=== PATIENT | female | born 1985 | race Caucasian/White ===

== ENCOUNTER 2019-04-24 17:02 | Outpatient (CLI) | payer BC, SELFPAY ==
--- NOTE | ~2019-04-24 | XR_ITS ---
EXAMINATION: XR ankle LT min 3V DATE: 04/24/2019 17:34 INDICATION: Left ankle pain with weightbearing and flexing TECHNIQUE: Anteroposterior, oblique, mortise, and lateral views of the left ankle were obtained. COMPARISON: None. FINDINGS: Bone alignment is normal. There is a small rounded ossicle at the lateral side of the tibiotalar join t. There appears to be a shallow concavity with smooth corticated margins along the lateral rim of th e talar dome. Appearance suggests a possibility of chronic displaced chip fracture or small osteochon dral lesion. No acute fractures identified. Joint spaces appear relatively preserved. Soft tissues ar e unremarkable with no evident ankle joint effusion. IMPRESSION: 1. Tiny round intra-articular loose body at the lateral side of the ankle mortise and adjacent subtle chronic appearing contour abnormality along the lateral margin of the talar dome suggesting either a n old displaced tiny chip fracture fragment or osteochondral lesion as sequela of old trauma. Reviewed, dictated and finalized at location A. ATOR CAVITY PUMP IMPRESSION: 1. Tiny round intra-articular loose body at the lateral side of the ankle morti se and adjacent subtle chronic appearing contour abnormality along the lateral margin of the talar dome suggesting either an old displaced tiny chip fracture fragment or osteochondral lesion as sequela of old trauma.
== END 2019-04-24 17:03 | disposition home or self-care (01) ==
LOC: ANHIMG 17:08
PROVIDERS: PCP Family Medicine; Visit Provider Physician Assistant
DX: S99.912A Unspecified injury of left ankle, initial encounter (principal)
CPT/HCPCS: 73610

== ENCOUNTER 2019-10-08 15:36 | Emergency (ER) | payer BC, SELFPAY ==
--- NOTE | ~2019-10-08 | CT_ITS ---
EXAMINATION: CT abdomen pelvis w con DATE: 10/08/2019 18:22 INDICATION: Left lower quadrant abdominal pain. TECHNIQUE: Computed tomography (CT) of the abdomen and pelvis was performed with 100 mL Omnipaque 350 intravenous contrast. Automated exposure control and iterative reconstruction technique were employe d. The dose-length product was 1549.72 mGy-cm. COMPARISON: CT abdomen and pelvis 09/29/2018 FINDINGS: The visualized portions of the lung bases demonstrate mild atelectasis on the left. No pleu ral effusion. The heart size is normal. No pericardial effusion. The liver, gallbladder, spleen, panc reas, and left adrenal gland are normal. There is a 9 mm mass of fat in right adrenal gland, consiste nt with a myelolipoma. There is cortical thinning of the kidneys. There are no dilated loops of bowel . The appendix is normal. There are no pathologically enlarged lymph nodes. There is no free intraper itoneal fluid. There is mild thoracic spondylosis. IMPRESSION: 1. No etiology for the patient's symptoms. Reviewed, dictated and finalized at location A.
[2019-10-08 15:40] VITALS: BP 141/102; PULSE 115; RESP 20; TEMP 37.3; O2SAT 97
--- NOTE | 2019-10-08 16:23 | ED.ABDPAIN ---
HPI - Abdominal Pain General Chief Complaint: Abdominal Pain Stated Complaint: L LOWER ABD PAIN Time Seen by Provider: 10/08/19 15:45 Source: patient Mode of arrival: ambulatory Limitations: no limitations History of Present Illness HPI narrative: This patient is a 34 year old female who presents for evaluation of left lower abdominal pain. Patient states she developed left lower abdominal pain today. She noticed the area was tender so she called her owner consulting engineer. She states her owner consulting engineer recommended she come to ER. She denies urinary symptoms, pelvic discharge, vomiting, or fever. She has history of kidney stone but this pain is different. She has not taken anything for her pain. MD elicited complaint: abdominal pain Radiation: LLQ Related Data Home Medications Medication Instructions Recorded Confirmed etonogestrel 68 mg subdermal 1 implant SUBDERMAL ONCE 03/16/19 10/05/19 implant Allergies Allergy/AdvReac Type Severity Reaction Status Date / Time No Known Allergies Allergy Verified 10/08/19 15:49 Review of Systems Review of Systems: All systems reviewed & are unremarkable except as noted in HPI and below Constitutional: Constitutional: Denies chills and Denies fever(s) Gastrointestinal: Gastrointestinal: Reports abdominal pain, Denies diarrhea, Reports nausea and Denies vomiting Genitourinary: Genitourinary: Denies abnormal vaginal bleeding, Denies nocturia, Denies dysuria, Denies flank pain and Denies vaginal discharge Musculoskeletal: Musculoskeletal: Denies back pain PMFSH Past Medical History Medical History (Updated 10/08/19 @ 18:51 by Tali Franz MD) HLD (hyperlipidemia) Kidney stone Surgical History Surgical History (Updated 10/08/19 @ 16:24 by Tali Franz MD) H/O lithotripsy Family History Family History (Updated 06/30/17 @ 07:34 by DOCTOR UNKNOWN) Father Family history of chronic obstructive pulmonary disease Malignant neoplasm of prostate Family history of diabetes mellitus in first degree relative Family history of congestive heart failure Diabetes mellitus Hypertension Family history of cardiovascular disease Mother Family history of diabetes mellitus in first degree relative Diabetes mellitus Social History Social History Smoking status: Never smoker Second hand tobacco smoke exposure: No Alcohol intake: current Gender identity (if verbalized by the patient): Female Exam Narrative: Exam Narrative: GENERAL: Well-appearing, well-nourished, and in no acute distress. HEAD: Normocephalic, atraumatic EYES: PERRLA and EOMI, conjunctiva clear without discharge THROAT:Mucous membranes moist,e NECK: Supple, without lymphadenopathy or mass RESPIRATORY: No respiratory distress, Airway patent, Respirations non-labored, Clear to auscultation without rales, rhonchi or wheeze HEART: Regular rate and rhythm. No murmur heard. Normal peripheral pulses. ABDOMEN: Soft,focal LLQ tenderness, nondistended, normal active bowel sounds. No masses. No rebound or guarding, No organomegaly. EXTREMITIES: No edema, normal strength with full range of motion. SKIN: Warm, dry, normal color without rash NEURO: Alert and oriented x3. CN 2-12 grossly intact. No focal deficits. PSYCH: Normal mood and affect. : General: Yes no CVA tenderness Speculum Exam - Vagina: abnormal vaginal discharge (brown discharge with small clot) Bimanual exam- vagina & uterus: no cervical motion tenderness Course Reevaluation(s) Reevaluation #1: I have discussed with patient that CT did not show any cause for her pain. Pelvic exam showed mild brown discharge likely from menstrual cycle. She has not CMT. She will follow up with OBGYN regarding test and pain. Date: 10/08/19 Time: 18:48 Vital Signs Vital signs: Vital Signs Temperature 99.1 F 10/08/19 15:40 Pulse Rate 115 H 10/08/19 15:40 Respiratory Rate 2
[2019-10-08 16:55] LABS: Basophils Absolute Auto 0.1 K/mm3 (0.0-0.1); Basophils Percent Auto 0.4 % (0.2-1.2); Eosinophils Absolute Auto 0.3 K/mm3 (0-0.3); Hemoglobin 13.7 g/dL (12.0-15.0); Immature Granulocyte Absolute 0.03 K/mm3 (0.00-0.031); Immature Granulocyte Percent A 0.3 % (0-0.5); Lymphocytes Percent Auto 18.3 % (18.3-44.2); Mean Corpuscular HGB Conc 34.3 g/dl (32-36); Mean Corpuscular Hemoglobin 31.1 pg (26-34); Mean Corpuscular Volume 90.9 fl (80-100); Mean Platelet Volume 10.2 fl (7.4-10.4); Monocytes Absolute Auto 0.6 K/mm3 (0.1-0.6); Monocytes Percent Auto 4.8 % (2.6-8.5); Neutrophils Absolute Auto 8.4 K/mm3 (1.3-6.7); Neutrophils Percent Auto 73.2 % (45.5-73.1); Platelet Count Result 294 k/mm3 (150-375); Red Cell Distribution Width 12.8 % (11.5-14.5); White Blood Count 11.5 K/mm3 (4.5-10.0)
[2019-10-08] MEDS: KETOROLAC 30 MG/ML VIAL (*BKC) IV PUSH (16:56)
[2019-10-08] MEDS: LACTATED RINGERS 1,000 ML 999 ML IV CONT (16:56)
[2019-10-08 16:59] LABS: Add Urine Microscopic? YES; Appearance Urine Clear (Clear); Bilirubin Urine Negative (Negative); Blood Urine Negative (Negative); Color Urine Straw (Yellow); Glucose Urine UA Negative (Negative); Ketones Urine Negative (Negative); Leukocyte Esterase Ur 1+ LEU/UL (Negative); Mucus Urine Rare /lpf; Nitrate Urine Negative (Negative); Protein Urine Negative (Negative); RBC Urine 0-2 /hpf (0-2); Specific Grav Ur 1.011 (1.001-1.035); Squamous Epithelial Cell Urine Few /hpf (Few); Urobilinogen Urine Negative mg/dL (<2.0)
[2019-10-08 17:21] LABS: Alanine Aminotransferase 13 U/L (4-35); Alkaline Phosphatase 66 U/L (38-126); Aspartate Amino Transferase 17 U/L (14-36); Bilirubin,Total 0.2 mg/dL (0.2-1.3); Blood Urea Nitrogen 12 mg/dL (7-17); Calcium 8.9 mg/dL (8.4-10.2); Carbon Dioxide 25 mmol/L (22-30); Chloride 107 mmol/L (98-107); Estimated CRCL calculation 167 ml/min; Estimated Glomerular Filt Rate > 60; Glucose 126 mg/dL (65-105); Lipase 105 U/L (23-300); Potassium 3.8 mmol/L (3.4-5.0); Sodium 139 mmol/L (137-145)
[2019-10-08 17:55] VITALS: BP 118/65; PULSE 65; RESP 15; TEMP 36.9; O2SAT 100
== END 2019-10-08 19:12 | disposition home or self-care (01) ==
PROVIDERS: Emergency Provider General Practice; PCP Family Medicine
DX: R10.32 Left lower quadrant pain (principal); E78.5 Hyperlipidemia, unspecified; Z87.442 Personal history of urinary calculi
CPT/HCPCS: 36415; 74177; 80053; 81001; 81025; 83690; 85025; 87070; 87077; 87491; 87591; 87808; 96361; 96365; 96375; 99284; J0131; J1885; J7120; Q9967

== ENCOUNTER 2021-02-03 16:06 | Outpatient (CLI) | payer BC, SELFPAY ==
--- NOTE | ~2021-02-03 | CT_ITS ---
EXAMINATION: CT abdomen pelvis wo con DATE: 02/03/2021 17:15 INDICATION: Right flank pain. TECHNIQUE: Computed tomography (CT) of the abdomen and pelvis was performed without intravenous contr ast. Automated exposure control and iterative reconstruction technique were employed. The dose-length product was 1493.32 mGy-cm. COMPARISON: CT abdomen and pelvis 10/08/2019 FINDINGS: The visualized portions of the lung bases demonstrate mild atelectasis. No pleural effusion . The heart size is normal. No pericardial effusion. The liver, gallbladder, spleen, pancreas, and le ft adrenal gland are normal. There is a 10 mm mass of fat in right adrenal gland, consistent with a m yelolipoma. There is cortical thinning of right kidney. Left kidney is normal. There is no urolithias is. There are no dilated loops of bowel. The appendix is normal. There are no pathologically enlarged lymph nodes. There is no free intraperitoneal fluid. There is mild thoracolumbar spondylosis. IMPRESSION: 1. No etiology for the patient's symptoms. Reviewed, dictated and finalized at location A. PROGRAMMER ANALYST
--- NOTE | ~2021-02-03 | XR_ITS ---
EXAMINATION: XR abdomen/kub 1V DATE: 02/03/2021 16:43 INDICATION: Right flank pain. TECHNIQUE: A supine view of the abdomen on 2 radiographs was obtained. COMPARISON: CT abdomen and pelvis 10/08/2019 FINDINGS: There are no dilated loops of bowel. There is no visible urolithiasis. IMPRESSION: 1. No urolithiasis. Reviewed, dictated and finalized at location A. TATION OPERATOR HELPER GENERATION IMPRESSION: 1. No urolithiasis.
== END 2021-02-03 16:07 | disposition home or self-care (01) ==
PROVIDERS: PCP Family Medicine; Visit Provider Nurse Practitioner Adult Health
DX: R10.9 Unspecified abdominal pain (principal)
CPT/HCPCS: 74018; 74176

== ENCOUNTER 2021-05-15 13:41 | Outpatient (CLI) | payer BC, SELFPAY ==
--- NOTE | ~2021-05-15 | MM_ITS ---
EXAMINATION: MM diagnostic josé RT w sunil HISTORY: Mastodynia TECHNIQUE: ML, MLO and CC 3-D tomosynthesis images of the right breast were performed and synthetic 2 -D images were generated. CAD analysis was submitted and interpreted. COMPARISON: None BREAST PARENCHYMAL COMPOSITION: The breasts are almost entirely fatty. FINDINGS: No suspicious mass or architectural distortion, malignant calcification, skin thickening or retraction is detected. IMPRESSION: 1. No mammographic evidence of malignancy 2. Routine mammographic screening beginning at age 40 is recommended. BI-RADS Category 1: Negative Reviewed, dictated and finalized at location A. REMENT PLAN SPECIALIST
== END 2021-05-15 13:42 | disposition home or self-care (01) ==
LOC: ANHIMG 13:43
PROVIDERS: PCP Family Medicine; Visit Provider Obstetrics & Gynecology
DX: N64.4 Mastodynia (principal)
CPT/HCPCS: 77061; 77065; G0279

== ENCOUNTER 2021-10-11 08:06 | Emergency (ER) | payer BC, SELFPAY ==
--- NOTE | 2021-10-11 08:08 | ED.URI ---
HPI - URI/Sore Throat General Chief Complaint: Upper Respiratory Infection Stated Complaint: Sore Throat,Headache Time Seen by Provider: 10/11/21 08:07 Source: patient Mode of arrival: ambulatory Limitations: no limitations History of Present Illness HPI Narrative: Mrs. Chinchilla is a 36 year old female patient presenting to the clinic today with c/o sore throat, chills, and headache x1. She reports her symptoms began last night. Temp was 99.4F this morning and she took some tylenol. Took an at home covid test and was unsure of the result. MD elicited complaint: sore throat and nasal congestion Related Data Allergies Allergy/AdvReac Type Severity Reaction Status Date / Time No Known Allergies Allergy Verified 10/06/21 13:08 Review of Systems Review of Systems: Pertinent positives per HPI. Patient denies any fever, chills, rash, headache, visual changes, dizziness, cough, runny nose, sore throat, shortness of breath, chest pain, palpitations, nausea, vomiting, diarrhea, constipation, abdominal pain, or any urinary issues. [facility] Past Medical History Medical History Abnormal Pap smear of cervix 04/10/2019 ASCUS +HPV; 07/09/2020 +hpv Anxiety HLD (hyperlipidemia) HPV in female Kidney stone (~2010) Nexplanon insertion 04/11/18 Nexplanon insertion Surgical History Surgical History H/O lithotripsy 2010 x4 History of bilateral salpingectomy 03/28/20 Hscope D&C/ Jayshree Endometrial ablation / Lscope Bilateral Salpingectomy; Menometrorrhagia , Dysmenorrhea , Undesired fertility History of colposcopy with cervical biopsy 05/05/17 benign History of dilation and curettage 03/28/20 Hscope D&C/ Jayshree Endometrial ablation / Lscope Bilateral Salpingectomy; Menometrorrhagia , Dysmenorrhea , Undesired fertility History of endometrial ablation 03/28/20 Hscope D&C/ Jayshree Endometrial ablation / Lscope Bilateral Salpingectomy; Menometrorrhagia , Dysmenorrhea , Undesired fertility Family History Family History Father Family history of chronic obstructive pulmonary disease Malignant neoplasm of prostate Family history of diabetes mellitus in first degree relative Family history of congestive heart failure Diabetes mellitus Hypertension Family history of cardiovascular disease Heart disease Cerebrovascular accident Mother Family history of diabetes mellitus in first degree relative Diabetes mellitus Hypertension Heart disease Social History Social History Smoking status: Never smoker Second hand tobacco smoke exposure: No Alcohol intake: current Drinks per week: 1 Substance use: never Substance use type: does not use Additional living arrangements comments: Additional occupation/education comments: teacher Gender identity (if verbalized by the patient): Female Sexual Orientation (if Verbalized by the Patient): Straight or Heterosexual Comments At the time of my signature, I reviewed and agree with the nursing past medical, surgical, social, and family history. There is no relevant family history pertinent to the patient complaint. Exam Narrative: General: Well-developed, obese, in no apparent distress Head: Normocephalic, atraumatic Eyes: Pupils equally round and reactive to light bilaterally, EOM intact, sclera and conjunctive clear, no discharge, lids normal Ears: TMs intact and clear, ear canals clear, no drainage, grossly hearing normal. Nose: Nares patent,clear nasal discharge, no inflammation, no sinus tenderness. Mouth: Oropharynx without lesions or masses, good dentition, MMM.Oropharynx red Neck: Supple, trachea midline, no enlargement of anterior or posterior cervical nodes, no thyroid masses or goiter palpable. Ca
[2021-10-11 08:16] VITALS: BP 122/69; PULSE 82; RESP 18; TEMP 36.3; O2SAT 99
== END 2021-10-11 08:50 | disposition home or self-care (01) ==
PROVIDERS: Emergency Provider Nurse Practitioner Family; PCP Family Medicine
DX: J02.9 Acute pharyngitis, unspecified (principal); B34.9 Viral infection, unspecified; Z20.822 Contact with and (suspected) exposure to COVID-19; E78.5 Hyperlipidemia, unspecified
CPT/HCPCS: 87081; 87426; 87880; 99213; C9803; G0463

== ENCOUNTER 2021-11-21 14:01 | Emergency (ER) | payer BC, SELFPAY ==
--- NOTE | ~2021-11-21 | XR_ITS ---
EXAMINATION: XR foot LT min 3V DATE: 11/21/2021 14:22 INDICATION: Pain at the dorsum of the left foot TECHNIQUE: Dorsoplantar, two oblique and lateral views of the left foot were obtained. COMPARISON: None. FINDINGS: Alignment is normal. No fracture. Joint spaces are normal. Soft tissues are unremarkable. No ankle mo int effusion. IMPRESSION: 1. Negative left foot radiographs. Reviewed, dictated and finalized at location A.
[2021-11-21 14:11] VITALS: BP 115/78; PULSE 78; RESP 18; TEMP 37.1; O2SAT 100
--- NOTE | 2021-11-21 14:21 | ED.LOWEXIN ---
HPI - Extremity Injury (Lower) General Chief Complaint: Extremity Injury, Lower Stated Complaint: left foot pain Time Seen by Provider: 11/21/21 14:21 Source: patient and RN notes reviewed Mode of arrival: ambulatory Limitations: no limitations History of Present Illness HPI Narrative: 36-year-old female presents to the [facility] with complaints of left dorsal foot pain. Patient states she is rolled her ankle 2 to 3 weeks ago and the ankle is better but still having discomfort to the dorsal aspect of the foot. No swelling or bruising noted. MD complaint: ankle injury and foot injury Related Data Allergies Allergy/AdvReac Type Severity Reaction Status Date / Time No Known Allergies Allergy Verified 10/06/21 13:08 Review of Systems Review of Systems: All systems reviewed & are unremarkable except as noted in HPI and below Constitutional: Constitutional: Reports no additional constitutional complaints, Denies chills and Denies fever(s) Eyes: Eyes: Reports no additional eye complaints ENT: Reports system reviewed and no additional complaints, except as documented Cardiovascular: Cardiovascular: Reports no additional cardiovascular complaints Respiratory: Respiratory: Reports no additional respiratory complaints Gastrointestinal: Gastrointestinal: Reports no additional gastrointestinal complaints Musculoskeletal: Musculoskeletal: Reports as per HPI and Reports arthralgias (Dorsal left foot) Integumentary/Breasts: Skin/Breast: Reports system reviewed and no additional complaints, except as docu Neurologic: Reports system reviewed and no additional complaints, except as documented Psychiatric: Psychiatric: Reports no additional psychiatric complaints Allergic/Immunologic: Allergic/Immunologic: Reports no additional allergic/immunologic complaints PMFSH Past Medical History Medical History Abnormal Pap smear of cervix 04/10/2019 ASCUS +HPV; 07/09/2020 +hpv Anxiety HLD (hyperlipidemia) HPV in female Kidney stone (~2010) Nexplanon insertion 04/11/18 Nexplanon insertion Surgical History Surgical History H/O lithotripsy 2010 x4 History of bilateral salpingectomy 03/28/20 Hscope D&C/ Jayshree Endometrial ablation / Lscope Bilateral Salpingectomy; Menometrorrhagia , Dysmenorrhea , Undesired fertility History of colposcopy with cervical biopsy 05/05/17 benign History of dilation and curettage 03/28/20 Hscope D&C/ Jayshree Endometrial ablation / Lscope Bilateral Salpingectomy; Menometrorrhagia , Dysmenorrhea , Undesired fertility History of endometrial ablation 03/28/20 Hscope D&C/ Jayshree Endometrial ablation / Lscope Bilateral Salpingectomy; Menometrorrhagia , Dysmenorrhea , Undesired fertility Family History Family History Father Family history of chronic obstructive pulmonary disease Malignant neoplasm of prostate Family history of diabetes mellitus in first degree relative Family history of congestive heart failure Diabetes mellitus Hypertension Family history of cardiovascular disease Heart disease Cerebrovascular accident Mother Family history of diabetes mellitus in first degree relative Diabetes mellitus Hypertension Heart disease Social History Social History Smoking status: Never smoker Second hand tobacco smoke exposure: No Alcohol intake: current Drinks per week: 1 Substance use: never Substance use type: does not use Additional living arrangements comments: Additional occupation/education comments: teacher Gender identity (if verbalized by the patient): Female Sexual Orientation (if Verbalized by the Patient): Straight or Heterosexual Comments At the time of my signature, I reviewed and agree with the nursing past medical
== END 2021-11-21 14:47 | disposition home or self-care (01) ==
PROVIDERS: Emergency Provider Nurse Practitioner; PCP Family Medicine
DX: M79.672 Pain in left foot (principal); E78.5 Hyperlipidemia, unspecified
CPT/HCPCS: 73630; 99213; G0463

== ENCOUNTER → 2022-10-30 10:02 | Outpatient (CLI) | payer BC, SELFPAY ==
--- NOTE | ~2022-10-30 | XR_ITS ---
Lumbosacral Spine: AP, oblique, and lateral views Clinical History: Pain Findings: The normal lordotic curve is maintained. The vertebral bodies and posterior elements are i ntact. The intervertebral disc spaces are preserved. The sacroiliac joints are normally outlined. Impression: No significant abnormality. Reviewed, dictated and finalized at [facility]. Impression: No significant abnormality.
== END ==
PROVIDERS: PCP Family Medicine; Visit Provider Physician Assistant
DX: M54.50 Low back pain, unspecified (principal); M54.32 Sciatica, left side
CPT/HCPCS: 72110

== ENCOUNTER → 2022-12-10 13:50 | Outpatient (CLI) | payer BC, SELFPAY ==
--- NOTE | ~2022-12-10 | XR_ITS ---
XR abdomen/kub 1V DATE: 12/10/2022 14:18 INDICATION: Abdominal pain TECHNIQUE: 3 supine AP views COMPARISON: None FINDINGS: Morbid obesity. There is a prominent amount of fecal material within the colon. No bowel obstruction is detected. The psoas shadows are intact. No visceromegaly is detected. No significant abnormal calcification is noted. IMPRESSION: Moderately prominent amount of fecal material in colon; no bowel obstruction Reviewed, dictated and finalized at Location A. Reviewed, dictated and finalized at location A. IMPRESSION: Moderately prominent amount of fecal material in colon; no bowel ob struction
== END ==
PROVIDERS: PCP Family Medicine; Visit Provider Family Medicine
DX: R10.9 Unspecified abdominal pain (principal)
CPT/HCPCS: 74018

== ENCOUNTER 2023-01-09 13:36 | Emergency (ER) | payer BC, SELFPAY ==
[2023-01-09 13:47] VITALS: BP 127/82; PULSE 80; RESP 16; TEMP 37.1; O2SAT 99
--- NOTE | 2023-01-09 13:57 | ED.BACK ---
HPI - Back Pain/Injury General Chief Complaint: Back Pain/Injury Stated Complaint: Lower Back Pain Time Seen by Provider: 01/09/23 13:59 Source: patient and RN notes reviewed Mode of arrival: ambulatory Limitations: no limitations History of Present Illness HPI Narrative: 37-year-old female presents with concern for low back pain. She reports back pain started on Wednesday, she denies any injury or trauma. She reports it radiates the left. She reports it hurts worse when she bends over in the feels better when she lies flat. She reports she has tried ibuprofen and Tylenol without relief. She had a cyclobenzaprine that she took without relief. She denies loss of bowel or bladder function, perianal anesthesia, weakness in any extremity, abdominal pain, fever MD elicited complaint: back pain Related Data Home Medications Medication Instructions Recorded Confirmed Lexapro 01/09/23 Allergies Allergy/AdvReac Type Severity Reaction Status Date / Time No Known Allergies Allergy Verified 01/09/23 13:54 Review of Systems Review of Systems: CONSTITUTIONAL: Denies malaise, chills, sweats, or fever. CARDIOVASCULAR: Denies chest pain, palpitations, or edema. RESPIRATORY: Denies cough or dyspnea. GASTROINTESTINAL: Denies abdominal pain, nausea, vomiting, diarrhea, loss of bowel function GENITOURINARY: Denies dysuria, hematuria, frequency, loss of bladder function. SKIN: Denies rash or itching. MUSCULOSKELETAL: Reports low back pain NEUROLOGIC: Denies numbness, weakness, or headache. All systems reviewed & are unremarkable except as noted in HPI and below PMFSH Past Medical History Medical History Abnormal Pap smear of cervix 04/10/2019 ASCUS +HPV; 07/09/2020 +hpv Anxiety HLD (hyperlipidemia) HPV in female Kidney stone (~2010) Nexplanon insertion 04/11/18 Nexplanon insertion Surgical History Surgical History H/O lithotripsy 2010 x4 History of bilateral salpingectomy 03/28/20 Hscope D&C/ Jayshree Endometrial ablation / Lscope Bilateral Salpingectomy; Menometrorrhagia , Dysmenorrhea , Undesired fertility History of colposcopy with cervical biopsy 05/05/17 benign History of dilation and curettage 03/28/20 Hscope D&C/ Jayshree Endometrial ablation / Lscope Bilateral Salpingectomy; Menometrorrhagia , Dysmenorrhea , Undesired fertility History of endometrial ablation 03/28/20 Hscope D&C/ Jayshree Endometrial ablation / Lscope Bilateral Salpingectomy; Menometrorrhagia , Dysmenorrhea , Undesired fertility Family History Family History Father Family history of chronic obstructive pulmonary disease Malignant neoplasm of prostate Family history of diabetes mellitus in first degree relative Family history of congestive heart failure Diabetes mellitus Hypertension Family history of cardiovascular disease Heart disease Cerebrovascular accident Mother Family history of diabetes mellitus in first degree relative Diabetes mellitus Hypertension Heart disease Social History Social History Smoking status: Never smoker Second hand tobacco smoke exposure: No Alcohol intake: current Drinks per week: 1 Substance use: never Substance use type: does not use Lack of Transportation: No Lack of Food: Never True Current Housing: I Have Housing Concerned About Future Housing: No Difficulty Paying Gas/Electric Bills: No Difficulty Paying for Meds: No Currently Unemployed: No Education: Bachelor's Degree Difficulty w/ Childcare or Family Care: No Living arrangements: other Additional living arrangements comments: Occupation/Education: occupation Additional occupation/education comments: teacher Gender identity (if verbalized by the patient): Fema
== END 2023-01-09 14:11 | disposition home or self-care (01) ==
PROVIDERS: Emergency Provider Nurse Practitioner; PCP Family Medicine
DX: M54.50 Low back pain, unspecified (principal); E78.5 Hyperlipidemia, unspecified
CPT/HCPCS: 99213; G0463

== ENCOUNTER 2023-01-20 02:01 | Day surgery (SDC) | payer BC, SELFPAY ==
[2023-01-11 13:09] VITALS: BMI 62.3
[2023-01-20 08:33] VITALS: BP 155/95; PULSE 75; RESP 20; TEMP 36.4; O2SAT 99; BMI 62.5
[2023-01-20] MEDS: LACTATED RINGERS 1,000 ML 150 ML IV CONT (09:14)
--- NOTE | 2023-01-20 09:26 | WPDANESEPPF ---
Anes - Initial Pre Proc Eval Procedure: Operation Date: 01/20/23 09:30 Proposed Procedures p Esophagogastroduodenoscopy EGD - Manuel Chapa MD Date/Time: 01/20/23 09:26 Surgeon: Maunel Chapa MD Pre Op Diagnosis: Left upper quadrant pain Patient Data Age: 37 Gender: F Height: 1.57 m Weight: 155.1 kg Last Vital Signs Temp 97.5 F L 01/20/23 08:33 Pulse 75 01/20/23 08:33 Resp 20 01/20/23 08:33 BP 155/95 H 01/20/23 08:33 Pulse Ox 99 01/20/23 08:33 O2 Del Method Room Air 01/20/23 08:33 Allergies Allergy/AdvReac Type Severity Reaction Status Date / Time No Known Allergies Allergy Verified 01/20/23 08:32 Home Medications Medication Instructions Recorded Confirmed Type omeprazole 20 mg capsule,delayed 20 mg PO DAILY #90 caps 12/22/22 01/20/23 Rx release baclofen 5 mg tablet 5 mg PO TID #60 tabs 01/14/23 01/20/23 Rx hydrocodone 5 mg-acetaminophen 325 1 tablet PO Q8H PRN severe pain 01/14/23 01/20/23 Rx mg tablet (scale score 7-10) #60 tabs prednisone 10 mg tablet 10 mg PO DAILY #30 tabs 01/14/23 01/20/23 Rx escitalopram oxalate 10 mg tablet See Rx Instructions .Route 01/19/23 01/20/23 Rx .COMPLEX #90 tabs Patient hx anesthesia problems: none Family hx anesthesia problems: none Results Review: All pre-operative results and documents have been reviewed as part of the pre-operative evaluation. [facility] Past Medical History Medical History Abnormal Pap smear of cervix 04/10/2019 ASCUS +HPV; 07/09/2020 +hpv Anxiety HLD (hyperlipidemia) HPV in female Kidney stone (~2010) Nexplanon insertion 04/11/18 Nexplanon insertion Surgical History Surgical History H/O lithotripsy 2010 x4 History of bilateral salpingectomy 03/28/20 Hscope D&C/ Jayshree Endometrial ablation / Lscope Bilateral Salpingectomy; Menometrorrhagia , Dysmenorrhea , Undesired fertility History of colposcopy with cervical biopsy 05/05/17 benign History of dilation and curettage 03/28/20 Hscope D&C/ Jayshree Endometrial ablation / Lscope Bilateral Salpingectomy; Menometrorrhagia , Dysmenorrhea , Undesired fertility History of endometrial ablation 03/28/20 Hscope D&C/ Jayshree Endometrial ablation / Lscope Bilateral Salpingectomy; Menometrorrhagia , Dysmenorrhea , Undesired fertility Family History Family History Father Family history of chronic obstructive pulmonary disease Malignant neoplasm of prostate Family history of diabetes mellitus in first degree relative Family history of congestive heart failure Diabetes mellitus Hypertension Family history of cardiovascular disease Heart disease Cerebrovascular accident Mother Family history of diabetes mellitus in first degree relative Diabetes mellitus Hypertension Heart disease Social History Social History Smoking status: Never smoker Second hand tobacco smoke exposure: No Alcohol intake: current Drinks per week: 1 Substance use: current Substance use type: marijuana Other substance usage details: Uses gummies Lack of Transportation: No Lack of Food: Never True Current Housing: I Have Housing Concerned About Future Housing: No Difficulty Paying Gas/Electric Bills: No Difficulty Paying for Meds: No Currently Unemployed: No Education: Bachelor's Degree Difficulty w/ Childcare or Family Care: No Living arrangements: other Additional living arrangements comments: with sp Occupation/Education: occupation Additional occupation/education comments: teacher Gender identity (if verbalized by the patient): Female Sexual Orientation (if Verbalized by the Patient): Straight or Heterosexual Anes - Eval Final PreProcedure Day of Procedure 01/20/23
--- NOTE | 2023-01-20 09:34 | PM.HPGS ---
History of Present Illness History of Present Illness Consent: Risks, benefits, and alternatives have been discussed and questions answered. Patient agrees to proceed with procedure. Chief complaint: Left upper quadrant pain Narrative: Cheyanne Chinchilla is a 37 year old female with intermittent luq pain for 2 months, sometimes worse after eating, denies surgery. Using omeprazole but it is not making a difference, never had egd Review of Systems Constitutional: Constitutional: Denies headache(s) and Denies weakness Eyes: Eyes: Denies blurry vision ENT: Reports Normal hearing present, Denies headache(s) and Denies neck pain Cardiovascular: Cardiovascular: Denies chest pain and Denies dyspnea Respiratory: Respiratory: Denies dyspnea Gastrointestinal: Gastrointestinal: Reports no additional gastrointestinal complaints Genitourinary: Genitourinary: Denies dysuria Musculoskeletal: Musculoskeletal: Denies neck pain Integumentary/Breasts: Skin/Breast: Denies dry skin Neurologic: Reports Normal hearing present, Denies headache(s) and Denies weakness Psychiatric: Psychiatric: Denies anxiety Endocrine: Endocrine: Denies change in body appearance Hematologic/Lymphatic: Hematologic/Lymphatic: Denies easy bleeding Allergic/Immunologic: Allergic/Immunologic: Denies urticaria PMFSH Past Medical History Medical History (Updated 01/20/23 @ 09:35 by Manuel Chapa MD) Abnormal Pap smear of cervix 04/10/2019 ASCUS +HPV; 07/09/2020 +hpv Anxiety Chronic LUQ pain HLD (hyperlipidemia) HPV in female Kidney stone (~2010) Nexplanon insertion 04/11/18 Nexplanon insertion Surgical History Surgical History H/O lithotripsy 2010 x4 History of bilateral salpingectomy 03/28/20 Hscope D&C/ Jayshree Endometrial ablation / Lscope Bilateral Salpingectomy; Menometrorrhagia , Dysmenorrhea , Undesired fertility History of colposcopy with cervical biopsy 05/05/17 benign History of dilation and curettage 03/28/20 Hscope D&C/ Jayshree Endometrial ablation / Lscope Bilateral Salpingectomy; Menometrorrhagia , Dysmenorrhea , Undesired fertility History of endometrial ablation 03/28/20 Hscope D&C/ Jayshree Endometrial ablation / Lscope Bilateral Salpingectomy; Menometrorrhagia , Dysmenorrhea , Undesired fertility Family History Family History Father Family history of chronic obstructive pulmonary disease Malignant neoplasm of prostate Family history of diabetes mellitus in first degree relative Family history of congestive heart failure Diabetes mellitus Hypertension Family history of cardiovascular disease Heart disease Cerebrovascular accident Mother Family history of diabetes mellitus in first degree relative Diabetes mellitus Hypertension Heart disease Social History Social History Smoking status: Never smoker Second hand tobacco smoke exposure: No Alcohol intake: current Drinks per week: 1 Substance use: current Substance use type: marijuana Other substance usage details: Uses gummies Lack of Transportation: No Lack of Food: Never True Current Housing: I Have Housing Concerned About Future Housing: No Difficulty Paying Gas/Electric Bills: No Difficulty Paying for Meds: No Currently Unemployed: No Education: Bachelor's Degree Difficulty w/ Childcare or Family Care: No Living arrangements: other Additional living arrangements comments: with sp Occupation/Education: occupation Additional occupation/education comments: teacher Gender identity (if verbalized by the patient): Female Sexual Orientation (if Verbalized by the Patient): Straight or Heterosexual Meds Home Medications and Allergies Home Medications Medication Instructions Recorded Confirmed Type omeprazole 20 mg capsule,
[2023-01-20 09:52] VITALS: BP 112/73; PULSE 70; RESP 20; O2SAT 99
[2023-01-20 10:02] VITALS: BP 111/71; PULSE 72; RESP 20; O2SAT 98
[2023-01-20 10:12] VITALS: BP 114/68; PULSE 74; RESP 20; O2SAT 99
== END 2023-01-20 10:15 | disposition home or self-care (01) ==
PROVIDERS: PCP Family Medicine; Visit Provider Internal Medicine Gastroenterology
PROC: 0DJ08ZZ Inspection of Upper Intestinal Tract, Via Natural or Artificial Opening Endoscopic (ICD-10-PCS; CPT 43235; principal; 2023-01-20 09:30)
DX: K29.80 Duodenitis without bleeding (principal); K29.50 Unspecified chronic gastritis without bleeding; E78.5 Hyperlipidemia, unspecified; F41.9 Anxiety disorder, unspecified; Z79.891 Long term (current) use of opiate analgesic; E66.01 Morbid (severe) obesity due to excess calories; Z68.44 Body mass index [BMI] 60.0-69.9, adult
CPT/HCPCS: 43239; 88305; J2001; J2704; J7120

== ENCOUNTER 2023-02-02 10:51 | Outpatient (CLI) | payer BC, SELFPAY ==
--- NOTE | ~2023-02-02 | US_ITS ---
Abdominal Sonogram: Real-time sonographic imaging of the abdomen was performed. Clinical History: Left upper quadrant pain Findings: The liver appears echogenic, with no evidence of mass lesion or bile duct dilatation. Main portal vein demonstrates normal direction of flow. The spleen is normal in size without evidence of focal lesion. The gallbladder is well distended, and appears normal with no evidence of gallstone or wall thickening. The common bile duct measures 4 mm. The visualized pancreas, aorta, and IVC are un remarkable. The right kidney measures 11.5 cm in length and the left kidney measures 12.7 cm. There is no hydronephrosis or renal calculus. Impression: Diffuse fatty infiltration of the liver. Reviewed, dictated and finalized at location M. [facility] [employer] Impression: Diffuse fatty infiltration of the liver.
== END 2023-02-02 10:52 ==
PROVIDERS: PCP Family Medicine; Visit Provider Internal Medicine Gastroenterology
DX: K76.0 Fatty (change of) liver, not elsewhere classified (principal)
CPT/HCPCS: 76700

== ENCOUNTER 2024-06-11 07:48 | Observation (INO) | payer BC, SELFPAY ==
[2024-06-11] VITALS (22 sets, daily range): BP systolic 118–143; BP diastolic 55–84; PULSE 62–74; RESP 18–20; TEMP 36.5–37.1; O2SAT 95–99; BMI 58.4
--- NOTE | ~2024-06-11 | CT_ITS ---
CLINICAL INDICATION: Right-sided abdominal pain radiating posteriorly starting this morning with naus ea. COMPARISON: 02/03/2021 and dating back to 09/29/2018. TECHNIQUE: Multiple contiguous axial images of the abdomen and pelvis were performed without the admi nistration of intravenous contrast The dose-length product (DLP) was 1368.98 mGy-cm. Automated exposure control and iterative reconstruction technique were employed. FINDINGS/OBSERVATIONS: Visualized lower thorax: Trace left basilar atelectasis. The remainder of the lungs are clear. The heart is of normal size, without pericardial effusion. Small hiatal hernia is present. Liver: The liver demonstrates homogeneous attenuation and is enlarged measuring 20 cm in longitudinal dimens ion. Gallbladder and biliary system: The gallbladder is only minimally distended, and otherwise unremarkable. Pancreas: Limited evaluation of the pancreas secondary to the lack of intravenous contrast. Spleen: The spleen demonstrates homogeneous attenuation and is borderline enlarged measuring 12 cm in longitu dinal dimension. Kidneys: Global enlargement of the right kidney, an interval change from prior. Right-sided hydronephrosis secondary to a 10 mm calculus within the right renal pelvis. Prominence of the right ureter without leandra hydroureteronephrosis. No distal ureteral stone is ident ified. The left kidney, collecting system and ureter are unremarkable. Adrenal glands: Fat-containing right adrenal mass measuring 15 mm in greatest dimension, unchanged from 2019 with the varying size over the years secondary to patient positioning within the gantry. Left adrenal gland is unremarkable. Gastrointestinal tract: Fecal stasis within the colon. Appendix: The appendix is not definitively visualized. However, no pericecal inflammatory change is identified suggest the presence of acute appendicitis. Vasculature: Unremarkable. Lymph nodes: Limited evaluation without intravenous contrast Pelvic structures: The bladder is distended, and otherwise unremarkable. The uterus is anteverted and anteflexed, and otherwise unremarkable. Body wall and musculoskeletal: Small fat-containing umbilical hernia. No significant degenerative disease within the lower thoracic or lumbosacral spine. IMPRESSION: Right-sided hydronephrosis secondary to a 10 mm calculus within the right renal pelvis. Hepatomegaly, unchanged. Reviewed, dictated and finalized at location A.
--- NOTE | ~2024-06-11 | XR_ITS ---
XR abdomen/kub 1V DATE: 06/11/2024 13:55 INDICATION: Kidney stone TECHNIQUE: 3 portable supine AP views COMPARISON: 06/11/2024 CT abdomen pelvis FINDINGS: The 10 mm right renal pelvic calculus documented on 06/11/2022 CT abdomen pelvis examination is not readily evident on KUB. No evidence of bowel obstruction. No visceromegaly is evident. IMPRESSION: Radiographically occult right renal pelvic 1 cm calculus Reviewed, dictated and finalized at Location A. Reviewed, dictated and finalized at location A.
--- NOTE | ~2024-06-11 | XR_ITS ---
EXAMINATION: XR retrograde pyelo w/stent RT DATE: 06/12/2024 14:00 CDT INDICATION: RIGHT STENT PLACEMENT . TECHNIQUE: 6 fluoroscopic images of the right abdomen and pelvis were obtained during right retrograd e pyelography with stent placement, performed by Dr. Josh Bojorquez. I was not present during the pro cedure. Fluoroscopy exposure time was 20.1 seconds. Air Kerma 15.21 mGy. DAP 0.16406 mGym2. COMPARISON: CT abdomen pelvis 06/11/2024 FINDINGS/IMPRESSION: Fluoroscopic documentation of right retrograde pyelography with stent placement. Please refer to the operative note for complete procedural details . Reviewed, dictated and finalized at location K.
--- OUTSIDE RECORDS SUMMARY | 2024-06-11 07:50 | XMS_ITS | Clinical Summary ---
Author Organization [facility] Address [address] [place] [address] Phone Care Team Providers Care Level Vial Curvature Gauger Name Role Phone [facility] [place]p, Non-Integrated Physician Primary Care Provider Social History Tobacco Use Types Packs/Day Years Used Date Smoking Tobacco: Never Assessed Comments Unknown Sex and Gender Information Value Date Recorded Sex Assigned at Not on file Legal Sex Female 2:44 PM CDT Gender Identity Not on file Sexual Orientation Not on file Plan of Treatment Health Maintenance Due Date Last Done Comments DTAP/TDAP/TD VACCINES (1 - Tdap) 09/08/2003 HEPATITIS B VACCINES (1 of 3 - 19+ 3-dose series) 09/08/2003 PAP SMEAR 2014 INFLUENZA VACCINE (#1) 2023 HPV VACCINES Aged Out No longer eligi ble based on patient's age to complete this topic Care Teams Level Vial Curvature Gauger Relationship Specialty Start Date End Date [facility] Blair, Non-Integrated PhysicianMD [address] [place] [id number] PCP - General Internal Medicine 05/15/14
--- OUTSIDE RECORDS SUMMARY | 2024-06-11 07:51 | XMS_ITS | Continuity of Care Document ---
Author Organization [facility] Address [address] [place] [address] Phone Care Team Providers Care Residential Service Technician Name Role Phone Unavailable Unavailable Unavailable Advance Directives Directive Yes / No Effective Date File Name No Information Encounters Encounter Description Practice Location Reason(s) For Visit Diagnoses Date Provider Providers Copied on Encounter [facility], [address] [facility], [place], [place], [id number], [place] tel:[phone] [facility] OUT[facility]IENT No Information No Information Referring Provider: DAMEON Weeks, [facility] [address], [address]. tel:[phone] Family History Family Member Type Diagnosis Age At Onset No Information Payers Payer name Insurance type Covered libertarian ID Authoriza tion(s) No Information Social History Type Description Quantity Date Captured Comments Sex Female Smoking Status No Information Chief Complaint And Reason For Visit No Information History Of Present Illness Encounter Date Complaint History Of Prese nt Illness No Information Instructions Date Instruction Additional Infor mation No Information Assessments Type Assessment Date No Information
--- OUTSIDE RECORDS SUMMARY | 2024-06-11 07:51 | XMS_ITS | Clinical Summary ---
Author Organization [facility] Address [address] [place] [address] Care Team Providers Care Rn Chemical Dependency Name Role Phone Unavailable Primary Care Provider Unavailabl e Source Comments [facility] [employer],non-owned Affiliates and Associated Physician Practices is amultiple site organization consisting of ambulatory clinics and hospital sitesin [place], [place], [place] and [place]. This disclosure is being madepursuant to the Care Everywhere program and may not contain all information available regarding this patient. Last updated 17.[facility] Allergies No known active allergies Medications * Be aware that medications may not be up to date on this document. Alwaysverify current medications with the patient. Medication Sig Dispensed Refills Start Date End Date Status desogestrel-ethinyl estradiol (AZURETTE) 0.15-0.02/0.01 MG (09/08) tablet Take 1 Tab by mouth once daily Active Active Problems No known active problems Family History Medical History Relation Name Comments CAD (Coronary Artery Disease) Father COPD - Chronic Obstructive Pulmonary Disease Father Cancer - Prostate Father Diabetes - Type 2 Father Diabetes - Type 2 Mother Relation Name Status Comments Father Mother Social History Tobacco Use Types Packs/Day Years Used Date Smoking Tobacco: Never Sex and Gender Information Value Date Recorded Sex Assigned at Not on file Gender Identity Not on file Sexual Orientation Not on file Last Filed Vital Signs Vital Sign Reading Time Taken Comments Blood Pressure 118/80 08/12/2016 11:52 AM CDT Pulse 86 08/12/2016 11:52 AM CDT Temperature 37.2 C (98.9 F) 08/12/2016 11:52 AM CDT Respiratory Rate 16 08/12/2016 11:52 AM CDT Oxygen Saturation 98% 08/12/2016 11:52 AM CDT Inhaled Oxygen Concentration - - Weight 113.4 kg (250 lb) 08/12/2016 11:52 AM CDT Height 160 cm (5' 3 ) 08/12/2016 11:52 AM CDT Body Mass Index 44.29 08/12/2016 11:52 AM CDT Plan of Treatment Health Maintenance Due Date Last Done Comments PAP SMEAR 1984 HIV SCREENING 09/08/1999 HEPATITIS C SCREENING 09/03/2002 DTAP/TDAP/TD VACCINES (1 - Tdap) 09/08/2003 HEPATITIS B VACCINE (1 of 3 - 19+ 3-dose series) 09/08/2003 COVID-19 VACCINE ( - 2023-2 5 season) 2023 INFLUENZA VACCINE (#1) 2023 DEPRESSION SCREENING 03/22/2024 ZOSTER VACCINE (1 of 2) 2034 HIB VACCINE Aged Out No longer eligi ble based on patient's age to complete this topic HPV VACCINE Aged Out No longer eligi ble based on patient's age to complete this topic MENINGOCOCCAL (Group B) VACC INE SHARED DECISION-MAKING Aged Out No longer eligibl e based on patient's age to complete this topic MENINGOCOCCAL GROUPS A/C/Y/W VACCINE Aged Out No longer eligible b ased on patient's age to complete this topic PNEUMOCOCCAL VACCINE Aged Out No long er eligible based on patient's age to complete this topic
--- NOTE | 2024-06-11 08:04 | ED.ABDPAIN ---
HPI - Abdominal Pain General Chief Complaint: Abdominal Pain Stated Complaint: right sided abd pain radiates to back Time Seen by Provider: 06/11/24 08:04 Source: patient Mode of arrival: ambulatory Limitations: no limitations History of Present Illness HPI narrative: 38 YEARS OLD WHITE FEMALE CAME FROM HOME WITH RIGHT-SIDED ABDOMINAL PAIN RADIATING INTO HER RIGHT FLANK AREA STARTED THIS MORNING ASSOCIATED WITH NAUSEA. HISTORY OF KIDNEY STONE, MULTIPLE LITHOTRIPSY. PATIENT DENIES ANY FEVER OR CHILLS OR URINARY SYMPTOMS. Related Data Allergies Allergy/AdvReac Type Severity Reaction Status Date / Time No Known Allergies Allergy Verified 06/11/24 07:48 Review of Systems Review of Systems: All systems reviewed & are unremarkable except as noted in HPI and below PMFSH Past Medical History Medical History Chronic LUQ pain Nexplanon insertion 04/11/18 Nexplanon insertion Anxiety HPV in female Abnormal Pap smear of cervix 04/10/2019 ASCUS +HPV; 07/09/2020 +hpv Kidney stone (~2010) HLD (hyperlipidemia) Surgical History Surgical History History of bilateral salpingectomy 03/28/20 Hscope D&C/ Jayshree Endometrial ablation / Lscope Bilateral Salpingectomy; Menometrorrhagia , Dysmenorrhea , Undesired fertility History of endometrial ablation 03/28/20 Hscope D&C/ Jayshree Endometrial ablation / Lscope Bilateral Salpingectomy; Menometrorrhagia , Dysmenorrhea , Undesired fertility History of dilation and curettage 03/28/20 Hscope D&C/ Jayshree Endometrial ablation / Lscope Bilateral Salpingectomy; Menometrorrhagia , Dysmenorrhea , Undesired fertility History of colposcopy with cervical biopsy 05/05/17 benign H/O lithotripsy 2010 x4 Family History Family History Father Family history of chronic obstructive pulmonary disease Malignant neoplasm of prostate Family history of diabetes mellitus in first degree relative Family history of congestive heart failure Diabetes mellitus Hypertension Family history of cardiovascular disease Heart disease Cerebrovascular accident Mother Family history of diabetes mellitus in first degree relative Diabetes mellitus Hypertension Heart disease Social History Social History Social History: Smoking status: Never smoker Second hand tobacco smoke exposure: No Alcohol intake: former Alcohol use details: Occasionally Substance use: current Substance use type: marijuana Other substance usage details: Uses gummies ocassionally Do You Feel Safe in your Home?: Yes Lack of Transportation: No Lack of Food: Never True Current Housing: I Have Housing Concerned About Future Housing: No Difficulty Paying Gas/Electric Bills: No Difficulty Paying for Meds: No Currently Unemployed: No Education: Bachelor's Degree Difficulty w/ Childcare or Family Care: No Living arrangements: with family Occupation/Education: occupation Additional occupation/education comments: teacher Gender identity (if verbalized by the patient): Female Sexual Orientation (if Verbalized by the Patient): Straight or Heterosexual Exam Narrative: GENERAL APPEARANCE: WELL-DEVELOPED, WELL-NOURISHED SKIN: NORMAL COLOR HEAD: NORMOCEPHALIC, NONTRAUMATIC EYES: CLEAR CONJUNCTIVA ENT: OROPHARYNX NORMAL, EARS NORMAL, NOSE NORMAL NECK: SUPPLE, NONTENDER CHEST AND RESPIRATORY: AIRWAY PATENT, NO RESPIRATORY DISTRESS, NO ACCESSORY MUSCLE USE HEART: REGULAR RATE/RHYTHM ABDOMEN: SOFT, RIGHT FLANK TENDERNESS, NO ORGANOMEGALY, QUIET BOWEL SOUNDS VASCULAR: NORMAL PERIPHERAL PULSES, NORMAL CAPILLARY REFILL. MUSCULOSKELETAL: NORMAL RANGE OF MOTION, NONTENDER BACK NEUROLOGIC: ALERT AND ORIENTED ?3, SHAFT SINKER IS NORMAL TESTED, NO GROSS MOTOR DEFICIT Course Consultations Consultation #1: DR. ROBLES Date: 06/11/24 Time: 11:58 Vital Signs Vital signs: Vital Signs Temperature 36.6 C 06/11/24 07:53 Pulse Rate 72 06/11/24 07:53 Respiratory Rate 18 06/11/24 07:53 Blood Pressure 143/79 H 06/11/24 07:53 Pulse Oximetry 98 06/11/24 07:53 Oxygen Delivery Room Air 06/11/24 07:53 Temperature 36.6 C 06/11/24 07:53 Pulse Rate 70 06/11/24 10:55 Respiratory Rate 18 06/11/24 10:55 Blood Pressure 130/84 06/11/24 10:55 Pulse Oximetry 99 06/11/24 11:37 Oxygen Delivery Room Air 06/11/24 07:53 MDM - Abdominal Pain MDM Narrative Medical decision making narrative: PATIENT PRESENTS WITH LEFT ABDOMINAL LEFT FLANK PAIN STARTED THIS MORNING PRIOR TO ARRIVAL VITAL SIGNS ARE STABLE PHYSICAL EXAMINATION CONSISTENT WITH TENDERNESS AT THE LEFT FLANK AREA DIFFERENTIAL DIAGNOSIS INCLUDE KIDNEY STONE, URINARY TRACT INFECTION, COLITIS, DIVERTICULITIS, CONSTIPATION BLOOD WORKUP TODAY INCLUDES CBC, CMP, LIPASE SHOWED WBC 11.1, OTHERWISE INSIGNIFICANT CT ABDOMEN AND PELVIS WITHOUT CONTRAST SHOWED Right-sided hydronephrosis secondary to a 10 mm calculus within the right renal pelvis. Hepatomegaly, unchanged. URINALYSIS SHOWED Differential Diagnosis Differential diagnosis: Likely other ( ABOVE) Medical Records Attestation: I reviewed the patient's medical records. Lab Data Attestation: I reviewed the patient's lab results. 06/11/24 08:04 06/11/24 08:04 Labs: Lab Results 06/11/24 06/11/24 06/11/24 Range/Units 08:04 10:55 10:56 WBC 11.1 H (4.5-10.0) K/mm3 RBC 4.82 (4.2-5.4) M/mm3 Hgb 14.5 (12.0-15.0) g/dL Hct 43.7 (37.0-47.0) % MCV 90.7 (80-100) fl MCH 30.1 (26-34) pg MCHC 33.2 (32-36) g/dl RDW 13.3 (11.5-14.5) % Plt Count 315 (150-375) k/mm3 MPV 10.0 (7.4-10.4) fl Immature Gran % (Auto) 0.5 (0-0.5) % Neut % (Auto) 65.6 (45.5-73.1) % Lymph % (Auto) 25.2 (18.3-44.2) % [place] % (Auto) 5.0 (2.6-8.5) % Eos % (Auto) 3.1 (0-4.4) % Baso % (Auto) 0.6 (0.2-1.2) % Lymph # (Auto) 2.80 (0.9-3.2) K/mm3 [place] # (Auto) 0.6 (0.1-0.6) K/mm3 Eos # (Auto) 0.3 (0-0.3) K/mm3 Baso # (Auto) 0.1 (0.0-0.1) K/mm3 Abs Immat Gran (auto) 0.06 H (0.00-0.031) K/mm3 Absolute Neuts (auto) 7.3 H (1.3-6.7) K/mm3 Absolute Nucleated RBC 0.000 (0.0-0.012) K/mm3 Nucleated RBC % 0.0 (0.0-0.2) % Sodium 138 (137-145) mmol/L Potassium 4.2 (3.4-5.0) mmol/L Chloride 105 (98-107) mmol/L Carbon Dioxide 24 (22-30) mmol/L Anion Gap 9 (4-12) mmol/L BUN 13 (7-17) mg/dL Creatinine 0.60 L (0.7-1.0) mg/dL Estim Creat Clear Calc 149 ml/min Estimated GFR > 60 (59 - ) Glucose 112 H (65-110) mg/dL Calcium 9.1 (8.4-10.2) mg/dL Total Bilirubin 0.6 (0.2-1.3) mg/dL AST 35 (14-36) U/L ALT 63 H (6-35) U/L Alkaline Phosphatase 85 (38-126) U/L Total Protein 8.0 (6.3-8.2) g/dL Albumin 4.5 (3.5-5.1) g/dL Lipase 102 (23-300) U/L Urine Color Yellow (Yellow) Urine Appearance Clear (Clear) Urine pH 6.5 (5.0-9.0) Ur Specific [place] 1.011 (1.001-1.035) Urine Protein Negative (Negative) mg/dL Urine Glucose (UA) Negative (Negative) mg/dL Urine Ketones Trace H (Negative) mg/dL Ur Blood (Man) Negative (Negative) Urine Nitrate Negative (Negative) Urine Bilirubin Negative (Negative) Urine Urobilinogen 0.2 (<2.0) mg/dL Leukocyte Esterase Rfl 1+ H (Negative) CARLIE/UL Urine RBC 0-2 (0-2) /hpf Urine WBC 6-10 H (0-3) /hpf Ur Squamous Epith Cells Occasional (Few) /hpf Urine Bacteria None seen /hpf Urine Casts 0-2 POC Urine HCG, Qual Negative (Negative) Imaging Data Radiologist's impression: ITS Impressions Abdomen/Pelvis CT 06/11/24 09:42 IMPRESSION: Right-sided hydronephrosis secondary to a 10 mm calculus within the right renal pelvis. Hepatomegaly, unchanged. Critical Care Time Critical Care Time Critical Care Time: No Discharge Plan Discharge Clinical Impression: Kidney stone on right side Patient Language: Bahamian Prescriptions: No Action fluticasone propionate 50 mcg/actuation spray,suspension 1 spray intranasal DAILY Qty: 16 0RF Rx Instructions: administer into each nostril valacyclovir [Valtrex] 500 mg tablet 500 mg PO Q12H 7 Days Qty: 14 4RF escitalopram oxalate 10 mg tablet See Rx Instructions .ROUTE .COMPLEX Qty: 90 3RF Dose Instruction: TAKE 1 TABLET DAILY Rx Instructions: TAKE 1 TABLET DAILY escitalopram oxalate [Lexapro] 10 mg tablet 10 mg PO DAILY 30 Days Qty: 30 0RF Follow-up/Referrals: Vinay Trevizo MD [Primary Care Provider] -
[2024-06-11 08:12] LABS: Basophils Absolute Auto 0.1 K/mm3 (0.0-0.1); Basophils Percent Auto 0.6 % (0.2-1.2); Eosinophils Absolute Auto 0.3 K/mm3 (0-0.3); Eosinophils Percent Auto 3.1 % (0-4.4); Hematocrit 43.7 % (37.0-47.0); Hemoglobin 14.5 g/dL (12.0-15.0); Immature Granulocyte Absolute 0.06 K/mm3 (0.00-0.031); Immature Granulocyte Percent A 0.5 % (0-0.5); Lymphocytes Percent Auto 25.2 % (18.3-44.2); Mean Corpuscular HGB Conc 33.2 g/dl (32-36); Mean Corpuscular Hemoglobin 30.1 pg (26-34); Mean Corpuscular Volume 90.7 fl (80-100); Monocytes Absolute Auto 0.6 K/mm3 (0.1-0.6); Neutrophils Absolute Auto 7.3 K/mm3 (1.3-6.7); Neutrophils Percent Auto 65.6 % (45.5-73.1); Platelet Count Result 315 k/mm3 (150-375); Red Blood Count 4.82 M/mm3 (4.2-5.4); Red Cell Distribution Width 13.3 % (11.5-14.5); White Blood Count 11.1 K/mm3 (4.5-10.0)
[2024-06-11] MEDS: ONDANSETRON INJ 4 MG/2 ML VIAL IV PUSH ×2 (08:18→17:36)
[2024-06-11] MEDS: TAMSULOSIN HCL 0.4 MG CAPSULE PO (08:18)
[2024-06-11] MEDS: HYDROmorphone HCL INJ (*CRX) 1 MG/ML SYR 0.5 MG IV PUSH ×2 (08:19→12:23)
[2024-06-11 08:21] LABS: Alanine Aminotransferase 63 U/L (6-35); Albumin Level 4.5 g/dL (3.5-5.1); Alkaline Phosphatase 85 U/L (38-126); Anion Gap 9 mmol/L (4-12); Aspartate Amino Transferase 35 U/L (14-36); Bilirubin,Total 0.6 mg/dL (0.2-1.3); Blood Urea Nitrogen 13 mg/dL (7-17); Calcium 9.1 mg/dL (8.4-10.2); Carbon Dioxide 24 mmol/L (22-30); Chloride 105 mmol/L (98-107); Estimated CRCL calculation 149 ml/min; Estimated Glomerular Filt Rate > 60; Glucose 112 mg/dL (65-110); Lipase 102 U/L (23-300); Potassium 4.2 mmol/L (3.4-5.0); Sodium 138 mmol/L (137-145)
--- OUTSIDE RECORDS SUMMARY | 2024-06-11 08:31 | XMS_ITS | Continuity of Care Document ---
Author Organization [facility] Address [address] [place] [address] Phone Care Team Providers Care Underwriting Internship Name Role Phone Unavailable Unavailable Unavailable Advance Directives Directive Yes / No Effective Date File Name No Information Encounters Encounter Description Practice Location Reason(s) For Visit Diagnoses Date Provider Providers Copied on Encounter [facility], [address] [facility], [place], [place], [id number], [place] tel:[phone] [facility] OUTPATIENT No Information No Information Referring Provider: DAMEON Weeks, On [facility] of [facility] [address], [address]. tel:[phone] Family History Family Member Type Diagnosis Age At Onset No Information Payers Payer name Insurance type Covered democrat ID Authoriza tion(s) No Information Social History Type Description Quantity Date Captured Comments Sex Female Smoking Status No Information Chief Complaint And Reason For Visit No Information History Of Present Illness Encounter Date Complaint History Of Prese nt Illness No Information Instructions Date Instruction Additional Infor mation No Information Assessments Type Assessment Date No Information
--- OUTSIDE RECORDS SUMMARY | 2024-06-11 08:31 | XMS_ITS | Clinical Summary ---
Author Organization [facility] Address [address] [place] [address] Phone Care Team Providers Care Edge Stainer Machine Name Role Phone [facility] Ip, Non-Integrated Physician Primary Care Provider Social [...] age to complete this topic Care Teams Edge Stainer Machine Relationship Specialty Start Date End Date [facility] Blair, Non-Integrated PhysicianMD [address] [place] [address] PCP - General Internal Medicine 05/15/14
--- OUTSIDE RECORDS SUMMARY | 2024-06-11 08:31 | XMS_ITS | Clinical Summary ---
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 Gender Identity Not on file Sexual Orientation Not on file Plan of Treatment Health Maintenance Due Date Last Done Comments Cervical Cancer Screening Pa p Smear (Age 30 to 64) Every 3 Years 1984 Annual Physical 09/08/1987 PHQ-2 (Physician [employer]) 1996 Hepatitis C 2002 DTaP, Tdap and Td Vaccines ( 1 - Tdap) 09/08/2003 Hepatitis B Vaccines (1 of 3 - 19+ 3-dose series) 09/08/2003 Cervical Cancer Screening Pa p with HPV Testing (Age 30 to 64) Every 5 Years 2014 Cervical Cancer Screening with HPV 2014 COVID-19 Vaccine (2023-2 5 season) 2023 Influenza Adult (#1) 2023 PHQ-2 (Physician [employer]) 03/22/2024 HPV Vaccines Aged Out No longer eligi ble based on patient's age to complete this topic Meningococcal B Vaccine Aged Out No l onger eligible based on patient's age to complete this topic Meningococcal Vaccine Aged Out No gurpreet nasra eligible based on patient's age to complete this topic Pneumococcal Vaccine: Pediat rics (0 to 5 Years) and At-Risk Patients (6 to 64 Years) Aged Out No longer eligible b ased on patient's age to complete this topic RSV Immunizations Under 20 Months Aged Out No longer eligible based on patient's age to complete this topic Insurance [facility] Care Teams Battery Plate Remover Relationship Specialty Start Date End Date Vito Ashton PA [address] [address] PCP - General PHYSICIAN TROMMEL TENDER 03/03/23
--- OUTSIDE RECORDS SUMMARY | 2024-06-11 08:31 | XMS_ITS | Clinical Summary ---
Author Organization [facility] Address [address] [place] [address] Care Team Providers Care Tube Trailer Filler Name Role Phone Unavailable Primary Care Provider Unavailabl e Source Comments [facility],non-owned Affiliates and Associated Physician Practices is amultiple site organization consisting of ambulatory clinics and hospital sitesin [place], [place], [place] and [place]. This disclosure is being madepursuant to the Care Everywhere program and may not contain all information available regarding this patient. Last updated 17.[facility] Allergies No known active allergies Medications * [...]
[2024-06-11] MEDS: SODIUM CHLORIDE 0.9% IV 1,000 ML 999 ML IV CONT (09:14)
[2024-06-11 10:57] LABS: BEDSIDEPREGUCG Negative (Negative)
[2024-06-11 11:16] LABS: Add Urine Microscopic? YES; Appearance Urine Clear (Clear); Bacteria Urine None Seen /hpf; Bilirubin Urine Negative (Negative); Blood Urine Negative (Negative); Color Urine Yellow (Yellow); Glucose Urine UA Negative (Negative); Ketones Urine Trace mg/dL (Negative); Leukocyte Esterase Ur 1+ LEU/UL (Negative); Nitrate Urine Negative (Negative); Non Pathogenic Casts 0-2; Protein Urine Negative (Negative); RBC Urine 0-2 /hpf (0-2); Specific Grav Ur 1.011 (1.001-1.035); Squamous Epithelial Cell Urine Occasional /hpf (Few); Urobilinogen Urine 0.2 mg/dL (<2.0); pH Urine 6.5 (5.0-9.0)
--- NOTE | 2024-06-11 12:56 | P.HP_ITS ---
H&P: HPI History of Present Illness Date/Time: 06/11/24 12:56 Chief Complaint: Right flank pain Narrative: 38-year-old female past medical history of kidney stone, anxiety, and hyperlipidemia presents the hospital with right-sided flank pain down in to the abdomen. She states that she has a history very large kidney stone. She states that she has had a lithotripsy before. She denies dysuria, we with urination or odor to urine. Patient has no other complaints at this time. Denies fevers chills nausea vomiting. In the ED she had leukocytosis 11.1, creatinine of 0.6, ALT of 63, UA shows 1+ leukocyte esterase 6-10 wbc's and occasional squamous cells. CT chest abdomen pelvis show Right-sided hydronephrosis secondary to a 10 mm calculus within the right renal pelvis and Hepatomegaly, unchanged. Urine culture and sensitivities pending. Patient was given a 1 L of IV fluids in the ED. urology was consulted by the ED with plans for procedure. Review of Systems Review of Systems: 12 systems were reviewed and are negativ e except for as per HPI. [facility] Past Medical History Medical History Chronic LUQ pain Nexplanon insertion 04/11/18 Nexplanon insertion Anxiety HPV in female Abnormal Pap smear of cervix 04/10/2019 ASCUS +HPV; 07/09/2020 +hpv Kidney stone (~2010) HLD (hyperlipidemia) Surgical History Surgical History History of bilateral salpingectomy 03/28/20 Hscope D&C/ Jayshree Endometrial ablation / Lscope Bilateral Salpingectomy; Menometrorrhagia , Dysmenorrhea , Undesired fertility History of endometrial ablation 03/28/20 Hscope D&C/ Jayshree Endometrial ablation / Lscope Bilateral Salpingectomy; Menometrorrhagia , Dysmenorrhea , Undesired fertility History of dilation and curettage 03/28/20 Hscope D&C/ Jayshree Endometrial ablation / Lscope Bilateral Salpingectomy; Menometrorrhagia , Dysmenorrhea , Undesired fertility History of colposcopy with cervical biopsy 05/05/17 benign H/O lithotripsy 2010 x4 Family History Family History Father Family history of chronic obstructive pulmonary disease Malignant neoplasm of prostate Family history of diabetes mellitus in first degree relative Family history of congestive heart failure Diabetes mellitus Hypertension Family history of cardiovascular disease Heart disease Cerebrovascular accident Mother Family history of diabetes mellitus in first degree relative Diabetes mellitus Hypertension Heart disease Social History Social History Social History: Smoking status: Never smoker Second hand tobacco smoke exposure: No Alcohol intake: current Drinks per week: 1 Alcohol use details: Occasionally Substance use: current Substance use type: marijuana Other substance usage details: Uses gummies ocassionally Last use: 06/10/24 Do You Feel Safe in your Home?: Yes Lack of Transportation: No Lack of Food: Never True Current Housing: I Have Housing Concerned About Future Housing: No Difficulty Paying Gas/Electric Bills: No Difficulty Paying for Meds: No Currently Unemployed: No Education: Bachelor's Degree Difficulty w/ Childcare or Family Care: No Living arrangements: with family Occupation/Education: occupation Additional occupation/education comments: teacher Gender identity (if verbalized by the patient): Female Sexual Orientation (if Verbalized by the Patient): Straight or Heterosexual Spiritual care concerns: No Meds Home Medications and Allergies Home Medications ?Medication ?Instructions ?Recorded ?Confirmed ?Type escitalopram oxalate 10 mg tablet See Rx Instructions .Route 05/18/24 06/11/24 Rx .COMPLEX #90 tabs escitalopram oxalate 10 mg tablet 10 mg PO DAILY 30 days #30 tabs 05/18/24 06/11/24 Rx (Lexapro) Allergies Allergy/AdvReac Type Severity Reaction Status Date / Time No Known Allergies Allergy Verified 06/11/24 07:48 Vital Signs Vital Signs - 24 hr 06/11/24 07:53 06/11/24 10:55 06/11/24 11:37 Temperature 98 F Pulse Rate 72 70 Respiratory Rate 18 18 Blood Pressure 143/79 H 130/84 Pulse Oximetry 98 98 99 Oxygen Delivery Room Air Exam Narrative: General: well appearing, appears stated age. HEENT: normocephalic, atraumatic. Mucous membranes moist. EOMI, PERRLA, bilateral sclera anicteric, no conjunctival injection. Neck supple without JVD, lymphadenopathy, or bruit. Respiratory: clear to ascultation bilaterally. No rales/rhonic/wheezes. Cardiovascular: Regular rate and rhythm, normal S1-S2 upon ascultation. No murmurs, rubs, or clicks. PMI is nondisplaced, capillary refill less than 3 second. Abdomen: Obese, Soft, round, no pulsatile masses, nondistended and nontender. No rebound, no guarding. No CVA tenderness, no hepatosplenomegaly. Bowel sounds present to all four quadrants. No high pitch or tinkling sounds, resonant to percussion. Extremities: No cyanosis, clubbing, or edema present. Pulses are palpable 2/2. Active ROM to all four extremities. Neuro: Alert and orientated x 4. PERRLA. Cranial nerves 2-12 intact without focal deficit. Skin: Warm, dry, and intact, without rash, erythema, or lesion. Psych: pleasant, cooperative, normal speech, normal affect, no hallucinations, no dysarthia H&P: Results Labs Labs: Short CBC 06/11/24 Range/Units 08:04 WBC 11.1 H (4.5-10.0) K/mm3 Hgb 14.5 (12.0-15.0) g/dL Hct 43.7 (37.0-47.0) % Plt Count 315 (150-375) k/mm3 BMP 06/11/24 08:04 Sodium 138 Potassium 4.2 Chloride 105 Carbon Dioxide 24 BUN 13 Creatinine 0.60 L Glucose 112 H Calcium 9.1 Liver Function 06/11/24 Range/Units 08:04 Total Bilirubin 0.6 (0.2-1.3) mg/dL AST 35 (14-36) U/L ALT 63 H (6-35) U/L Alkaline Phosphatase 85 (38-126) U/L Albumin 4.5 (3.5-5.1) g/dL Urine 06/11/24 Range/Units 10:56 Urine Color Yellow (Yellow) Urine Appearance Clear (Clear) Urine pH 6.5 (5.0-9.0) Ur Specific [place] 1.011 (1.001-1.035) Urine Protein Negative (Negative) mg/dL Urine Glucose (UA) Negative (Negative) mg/dL Assessment and Plan Assessment and plan (1) Kidney stone on right side: Code(s): N20.0 - Calculus of kidney Status: Acute Assessment and Plan: Urology consulted NPO for possible procedure tomorrow IV fluids for hydration Flomax IV pain medication (2) TITA (generalized anxiety disorder): Code(s): F41.1 - Generalized anxiety disorder Status: Acute Assessment and Plan: Restart Lexapro Quality VTE Prophylaxis VTE prophylaxis: mechanical ordered and pharmacologic ordered Hospitalist [facility] Advance Care Plan I have confirmed that the patient's Advanced Care Plan is present, code status is documented, or surrogate decision maker is listed in patient medical record.: Yes Medication Reconciliation I have utilized all available resources to obtain, update and review the patients current medications (includes all prescriptions, OTC, herbals, cannabis, and nutritional supplements).: Yes
[2024-06-11] MEDS: SODIUM CHLORIDE 0.9% IV 1,000 ML 125 ML IV CONT ×2 (13:40→22:28)
--- NOTE | 2024-06-11 14:28 | PC.NURSE ---
patient has been NPO since 06/10 at 2300. with a sip of water with PO medication today
--- NOTE | 2024-06-11 14:37 | ADMGEN ---
This patient, Cheyanne Chinchilla, was admitted to Medical Room 249-01. Patient/family oriented to hospital policies and general routines including ID bracelet, bed and alarms, visiting hours, pain management, procedures, bathroom and other care routines, personal items, smoking policy, room service/diet, and visiting hours. Information on how to activate the Rapid Response Team has been discussed. Patient/Family are encouraged to report perceived risks to care and to ask questions if they do not understand what they are told or what they should do.
[2024-06-11] MEDS: ESCITALOPRAM OXALATE 10 MG TABLET PO (15:04)
[2024-06-11] MEDS: KETOROLAC 15 MG/ML VIAL (*BKC) IV PUSH ×2 (17:32→22:27)
[2024-06-12] VITALS (11 sets, daily range): BP systolic 125–149; BP diastolic 51–91; PULSE 58–75; RESP 12–21; TEMP 36.2–37.3; O2SAT 93–100
[2024-06-12] MEDS: KETOROLAC 15 MG/ML VIAL (*BKC) IV PUSH ×3 (04:56→16:15)
[2024-06-12 05:35] LABS: Basophils Absolute Auto 0.1 K/mm3 (0.0-0.1); Basophils Percent Auto 0.6 % (0.2-1.2); Eosinophils Absolute Auto 0.4 K/mm3 (0-0.3); Eosinophils Percent Auto 4.4 % (0-4.4); Hematocrit 38.7 % (37.0-47.0); Hemoglobin 12.5 g/dL (12.0-15.0); Immature Granulocyte Absolute 0.04 K/mm3 (0.00-0.031); Immature Granulocyte Percent A 0.4 % (0-0.5); Lymphocytes Absolute Auto 2.77 K/mm3 (0.9-3.2); Lymphocytes Percent Auto 28.8 % (18.3-44.2); Mean Corpuscular HGB Conc 32.3 g/dl (32-36); Mean Corpuscular Volume 92.8 fl (80-100); Mean Platelet Volume 10.1 fl (7.4-10.4); Monocytes Absolute Auto 0.6 K/mm3 (0.1-0.6); Monocytes Percent Auto 5.8 % (2.6-8.5); Neutrophils Absolute Auto 5.8 K/mm3 (1.3-6.7); Platelet Count Result 250 k/mm3 (150-375); Red Blood Count 4.17 M/mm3 (4.2-5.4); Red Cell Distribution Width 13.5 % (11.5-14.5); White Blood Count 9.6 K/mm3 (4.5-10.0)
[2024-06-12 05:47] LABS: Anion Gap 8 mmol/L (4-12); Blood Urea Nitrogen 13 mg/dL (7-17); Calcium 8.6 mg/dL (8.4-10.2); Carbon Dioxide 24 mmol/L (22-30); Chloride 107 mmol/L (98-107); Estimated CRCL calculation 153 ml/min; Estimated Glomerular Filt Rate > 60; Glucose 90 mg/dL (65-110); Potassium 3.9 mmol/L (3.4-5.0); Sodium 139 mmol/L (137-145)
[2024-06-12] MEDS: SODIUM CHLORIDE 0.9% IV 1,000 ML 125 ML IV CONT (06:53)
[2024-06-12] MEDS: ESCITALOPRAM OXALATE 10 MG TABLET PO (08:12)
[2024-06-12] MEDS: TAMSULOSIN HCL 0.4 MG CAPSULE PO (08:13)
--- NOTE | 2024-06-12 08:14 | WPDURCON ---
Assessment and Plan Assessment and plan (1) Kidney stone on right side: Code(s): N20.0 - Calculus of kidney Status: Acute Assessment and Plan: Plan for cystoscopy, retrograde pyelogram, right ureteral stent placement. Understands risks of bleeding, infection, damage to the urinary tract, inability to place the stent. I reviewed her CT scan. I reviewed her KUB. Her stone is not visible on KUB. Can be discharged home after stent placement this afternoon. We will arrange definitive stone procedure in the future. Urology Consult Note HPI Date Seen: 06/12/24 Requesting Physician: Sascha Horner MD Primary Care Provider: Vinay Trevizo MD Consult Narrative Narrative: Cheyanne Chinchilla is a 38 year old female with history of stone disease. My partner Dr. Skinny Pepper. Has treated her stones in the past. She has had lithotripsy which was successful. On her most recent lithotripsy there was lack of efficacy either due to size of the stone or composition of the stone. She was referred out for a percutaneous nephrolithotomy. She had acute onset of right flank pain yesterday. This prompted a visit to the emergency room. She was diagnosed with a 9.8 mm right renal pelvic/UPJ stone. She denies nausea vomiting. She denies fevers chills. She denies blood in the urine. She denies symptoms of urinary tract infection. Her pain is now currently controlled. She was offered discharge with elective stone procedure verses ureteral stent with definitive stone procedure later on as an outpatient. She opts for ureteral stent. She has had stents in the past and does not find bothersome Review of Systems Review of Systems: All systems reviewed & are unremarkable except as noted in HPI and below PMFSH Past Medical History Medical History Chronic LUQ pain Nexplanon insertion 04/11/18 Nexplanon insertion Anxiety HPV in female Abnormal Pap smear of cervix 04/10/2019 ASCUS +HPV; 07/09/2020 +hpv Kidney stone (~2010) HLD (hyperlipidemia) Surgical History Surgical History History of bilateral salpingectomy 03/28/20 Hscope D&C/ Jayshree Endometrial ablation / Lscope Bilateral Salpingectomy; Menometrorrhagia , Dysmenorrhea , Undesired fertility History of endometrial ablation 03/28/20 Hscope D&C/ Jayshree Endometrial ablation / Lscope Bilateral Salpingectomy; Menometrorrhagia , Dysmenorrhea , Undesired fertility History of dilation and curettage 03/28/20 Hscope D&C/ Jayshree Endometrial ablation / Lscope Bilateral Salpingectomy; Menometrorrhagia , Dysmenorrhea , Undesired fertility History of colposcopy with cervical biopsy 05/05/17 benign H/O lithotripsy 2010 x4 Family History Family History Father Family history of chronic obstructive pulmonary disease Malignant neoplasm of prostate Family history of diabetes mellitus in first degree relative Family history of congestive heart failure Diabetes mellitus Hypertension Family history of cardiovascular disease Heart disease Cerebrovascular accident Mother Family history of diabetes mellitus in first degree relative Diabetes mellitus Hypertension Heart disease Social History Social History Social History: Smoking status: Never smoker Second hand tobacco smoke exposure: No Alcohol intake: current Drinks per week: 1 Alcohol use details: Occasionally Substance use: current Substance use type: marijuana Other substance usage details: Uses gummies ocassionally Last use: 06/10/24 Do You Feel Safe in your Home?: Yes Lack of Transportation: No Lack of Food: Never True Current Housing: I Have Housing Concerned About Future Housing: No Difficulty Paying Gas/Electric Bills: No Difficulty Paying for Meds: No Currently Unemployed: No Education: Bachelor's Degree Difficulty w/ Childcare or Family Care: No Living arrangements: with family Occupation/Education: occupation Additional occupation/education comments: teacher Gender identity (if verbalized by the patient): Female Sexual Orientation (if Verbalized by the Patient): Straight or Heterosexual Spiritual care concerns: No Meds Home Medications and Allergies Home Medications ?Medication ?Instructions ?Recorded ?Confirmed ?Type escitalopram oxalate 10 mg tablet See Rx Instructions .Route 05/18/24 06/11/24 Rx .COMPLEX #90 tabs escitalopram oxalate 10 mg tablet 10 mg PO DAILY 30 days #30 tabs 05/18/24 06/11/24 Rx (Lexapro) Allergies Allergy/AdvReac Type Severity Reaction Status Date / Time No Known Allergies Allergy Verified 06/11/24 07:48 Vital Signs Vital Signs - 24 hr 06/11/24 10:55 06/11/24 11:37 06/11/24 11:45 Temperature Pulse Rate 70 Respiratory Rate 18 Blood Pressure 130/84 135/72 Pulse Oximetry 98 99 96 Oxygen Delivery 06/11/24 11:46 06/11/24 12:00 06/11/24 12:01 Temperature Pulse Rate Respiratory Rate Blood Pressure 124/81 Pulse Oximetry 99 97 98 Oxygen Delivery 06/11/24 12:22 06/11/24 12:30 06/11/24 12:31 Temperature Pulse Rate Respiratory Rate Blood Pressure 119/74 Pulse Oximetry 97 96 97 Oxygen Delivery 06/11/24 12:45 06/11/24 12:46 06/11/24 13:05 Temperature Pulse Rate Respiratory Rate Blood Pressure 118/79 Pulse Oximetry 97 95 96 Oxygen Delivery 06/11/24 13:17 06/11/24 13:41 06/11/24 13:45 Temperature Pulse Rate Respiratory Rate Blood Pressure 122/71 Pulse Oximetry 97 98 95 Oxygen Delivery 06/11/24 13:50 06/11/24 14:29 06/11/24 14:37 Temperature 98.7 F 97.7 F Pulse Rate 74 Respiratory Rate 20 Blood Pressure 140/81 Pulse Oximetry 96 96 Oxygen Delivery 06/11/24 14:55 06/11/24 20:00 06/11/24 20:14 Temperature 98 F Pulse Rate 74 62 Respiratory Rate 20 18 Blood Pressure 123/55 L Pulse Oximetry 96 96 Oxygen Delivery Room Air Room Air 06/11/24 21:39 06/12/24 02:10 06/12/24 04:59 Temperature 97.3 F L Pulse Rate 65 65 Respiratory Rate 20 Blood Pressure 125/62 Pulse Oximetry 96 98 Oxygen Delivery Autopap Autopap Exam Const: General: cooperative, healthy appearing, comfortable, no acute distress, alert, awake, Physically active and obese; No anxious or ill appearing Nutritional Appearance: obese Orientation/consciousness: patient oriented x3 Limitations: no limitations HENMT: Head: normal to inspection Eyes: General: appearance normal, both eyes and all related structures Neck: Neck: normal visual inspection and full ROM Resp: Effort & Inspection: normal respiratory effort, able to speak in complete sentences and no cough GI: Inspection: normal to inspection Skin: General skin exam: normal color, no rashes or lesions noted and elasticity normal Neuro: General: patient oriented x3 and moves all extremities Extrem: General: normal to inspection and full ROM Psych: Appearance: grossly normal Mental Status: mental status grossly normal Speech and movement: Normal speech and movement present and Clear speech present Results Labs 06/12/24 05:13 06/12/24 05:13 Labs: Short CBC 06/12/24 Range/Units 05:13 WBC 9.6 (4.5-10.0) K/mm3 Hgb 12.5 (12.0-15.0) g/dL Hct 38.7 (37.0-47.0) % Plt Count 250 (150-375) k/mm3 BMP 06/11/24 06/12/24 08:04 05:13 Sodium 138 139 Potassium 4.2 3.9 Chloride 105 107 Carbon Dioxide 24 24 BUN 13 13 Creatinine 0.60 L 0.58 L Glucose 112 H 90 Calcium 9.1 8.6 Liver Function 06/11/24 Range/Units 08:04 Total Bilirubin 0.6 (0.2-1.3) mg/dL AST 35 (14-36) U/L ALT 63 H (6-35) U/L Alkaline Phosphatase 85 (38-126) U/L Albumin 4.5 (3.5-5.1) g/dL Urine 06/11/24 Range/Units 10:56 Urine Color Yellow (Yellow) Urine Appearance Clear (Clear) Urine pH 6.5 (5.0-9.0) Ur Specific [place] 1.011 (1.001-1.035) Urine Protein Negative (Negative) mg/dL Urine Glucose (UA) Negative (Negative) mg/dL Imaging My impression: 9.8 mm right renal pelvic versus UPJ stone
--- NOTE | 2024-06-12 08:57 | P.DS_ITS ---
DS: Admitting Diagnosis Discharge Date 06/12/24 Admitting Diagnosis kidney stone on right side generalized anxiety disorder DS: Discharge Diagnosis Discharge Diagnosis (1) Kidney stone on right side: Code(s): N20.0 - Calculus of kidney Status: Acute (2) TITA (generalized anxiety disorder): Code(s): F41.1 - Generalized anxiety disorder Status: Acute DS: Summary Hospital Course Reason for hospitalization: kidney stone on right side generalized anxiety disorder Hospital Course: This is a 38-year-old female with a significant past medical history of generalized anxiety disorder who presented to the hospital with complaints of right-sided abdominal pain radiating into her right flank that started yesterday morning. She did have some nausea associated with the pain. Workup in the hospital included an abdomen / pelvis CT which showed right-sided hydronephrosis secondary to a 10 mm calculus within the right renal pelvis, hepatomegaly. Abdomen x-ray shown 1 cm calculus in the right renal pelvic area. Initial labs showed a white blood cell count of 11.1, blood sugar 112, ALT 63. UA shown trace urine ketone, 1+ leukocyte, 6-10 urine WBC. Urine culture was obtained and pending. Patient was given 1 L of normal saline and Dilaudid while in the ED. urology was consulted and took patient to the OR for cystoscopy with retrograde pyelogram, right ureteral stent placement. She is stable to be discharged at this time. She will need to follow up with Urology in 1 week for follow-up. Final diagnosis: hydroureteronephrosis, renal calculus Status at Discharge Cognitive/behavioral status at discharge: Alert and oriented x3 Functional status at discharge: independent ambulation Overall status at discharge: patient is progressing back to baseline Time Spent with Patient Time attestation: Total time spent providing and/or coordinating discharge services: Time spent: Greater than 30 minutes Exam Narrative: General: In no acute distress, well nourished Head: atraumatic, no encephalopathy Eyes: PERRLA, sclera clear, wears glasses ENT: moist mucous membranes, nasal passages clear Neck: supple, no JVD, no adenopathy, trachea midline Cardiac: Normal S1 and S2. RRR, No murmur, gallops or friction rubs, peripheral pulses intact. Respiratory: Lungs clear to auscultation, no adventitious lung sounds, currently on room air Gastrointestinal: soft, obese, non-tender, normoactive bowel sounds. : voiding without difficulty. Extremities: moves all extremities well, no edema Skin: clean, dry, intact. No wounds or lesions. Neuro: Alert and oriented x4, cranial nerves intact, no neuro deficits. Psych: normal mood, normal affect, interactive DS: Data Data Completed and Pending Completed studies during hospitalization: abdomen x-ray abdomen /pelvis CT Pending studies at discharge: urine culture Labs on day of discharge: Labs from last 24 hours 06/12/24 06/11/24 06/11/24 05:13 10:56 10:55 WBC 9.6 RBC 4.17 L Hgb 12.5 Hct 38.7 MCV 92.8 MCH 30.0 MCHC 32.3 RDW 13.5 Plt Count 250 MPV 10.1 Immature Gran % (Auto) 0.4 Neut % (Auto) 60.0 Lymph % (Auto) 28.8 Williams % (Auto) 5.8 Eos % (Auto) 4.4 Baso % (Auto) 0.6 Lymph # (Auto) 2.77 Williams # (Auto) 0.6 Eos # (Auto) 0.4 H Baso # (Auto) 0.1 Abs Immat Gran (auto) 0.04 H Absolute Neuts (auto) 5.8 Absolute Nucleated RBC 0.000 Nucleated RBC % 0.0 Sodium 139 Potassium 3.9 Chloride 107 Carbon Dioxide 24 Anion Gap 8 BUN 13 Creatinine 0.58 L Estim Creat Clear Calc 153 Estimated GFR > 60 Glucose 90 Calcium 8.6 Urine Color Yellow Urine Appearance Clear Urine pH 6.5 Ur Specific [place] 1.011 Urine Protein Negative Urine Glucose (UA) Negative Urine Ketones Trace H Ur Blood (Man) Negative Urine Nitrate Negative Urine Bilirubin Negative Urine Urobilinogen 0.2 Leukocyte Esterase Rfl 1+ H Urine RBC 0-2 Urine WBC 6-10 H Ur Squamous Epith Cells Occasional Urine Bacteria None seen Urine Casts 0-2 POC Urine HCG, Qual Negative Procedures/Treatments: cystoscopy, retrograde pyelogram, right ureteral stent placement Discharge Plan Discharge Attending physician on discharge: Ben Lubin Consulting providers: Yulia Lynn Discharging Clinician: Lo Raman Anticipated Discharge Date/Time: 06/12/24 08:56 Patient Disposition: Home, Self-Care Activity: as tolerated Diet: as tolerated and regular Discharge Instructions: * Follow with Urology as directed Patient Instructions: Kidney Stones (DC) Patient Language: Bengali Stand Alone Forms: General Discharge Information Follow-up/Referrals: Yulia Lynn MD [Physician] - 1 Week Discharge Medications: New hydrocodone-acetaminophen 5-325 mg Tablet 1 tablet PO Q6H PRN (Reason: Pain Rated 4-6) Qty: 20 0RF tamsulosin 0.4 mg Capsule 0.4 mg PO QAM Qty: 30 0RF Continued escitalopram oxalate 10 mg tablet See Rx Instructions .ROUTE .COMPLEX Qty: 90 3RF Dose Instruction: TAKE 1 TABLET DAILY Rx Instructions: TAKE 1 TABLET DAILY escitalopram oxalate [Lexapro] 10 mg tablet 10 mg PO DAILY 30 Days Qty: 30 0RF Date of admission: 06/11/24 13:18 Primary Care Provider: Vinay Trevizo Admitting Provider: Sascha Horner Attending physician on admission: Lo Raman Condition: Improved Hospitalist MIPS Heart Failure (Exclusion) Patient has history of Heart Transplant or Left Ventricular Assistive Device?: No IF YES, STOP HERE Heart Failure (Qualifier) Patient has current or prior documentation of LVEF less than or equal to 40%, or mod/servere depressed LVSF?: No IF NO, STOP HERE
--- NOTE | 2024-06-12 10:24 | WPDHPUPDATE1 ---
History and Physical Update Update Date/Time: 06/12/24 10:24 History and Physical has been reviewed, including an updated exam of the patient. There are NO changes in the patient's condition. Risks, benefits, and alternatives have been discussed and questions answered. Patient agrees to proceed with procedure.
[2024-06-12] MEDS: ceFAZolin 3 GM/D5W 100 ML 100 ML IVPB (14:11)
[2024-06-12] MEDS: LIDOCAINE 2% GEL UROJET 10 ML PKG MUCOUS MEM (14:16)
[2024-06-12] MEDS: LACTATED RINGERS 1,000 ML 30 ML IV CONT ×2 (14:25→15:21)
--- NOTE | 2024-06-12 14:58 | W.PM.PROC2 ---
Procedure Note - Detailed Date of Procedure 06/12/24 Pre-op Diagnosis Right ureteral stone Post-op Diagnosis Same Procedure Performed Cystoscopy, right retrograde pyelogram, right ureteral stent placement Surgeon Josh Bojorquez MD Anesthesia General Indications A1 with a 1 cm renal pelvic/UPJ stone. She desires a ureteral stent so she will be pain-free awaiting definitive stone management. She understands risks of bleeding, infection, inability to place stent, damage to the urinary tract. She agrees to proceed Findings Successful placement of 4.8 variable length stent Description of Procedure She was correctly identified. Informed consent obtained. From the operating room. She was given general anesthesia. She was placed in dorsal lithotomy position. She was prepped and draped sterile fashion. Time-out performed. Cystoscopy revealed a normal-appearing bladder without abnormalities. Ureteral orifices were normal. I did a gentle retrograde pyelogram on the right. She had a delicate not hydronephrotic ureter. She had blunting of the calices and hydronephrosis of the intrarenal portions of the collecting system. I could not see the stone under precision aircraft systems assembler radiograph. I placed a guidewire into the upper pole kidney. I then placed a 4.8 variable length stent. Proximal coil in the upper pole kidney. Distal coil in the bladder. Bladder was drained. She was awakened transferred to PACU in stable condition Implants Ureteral stent Estimated Blood Loss 1 Drains No Packing No Pathology None sent Complications No immediate complications Condition Stable Disposition PACU
[2024-06-12] MEDS: fentaNYL CITRATE INJ (*CRX) 100 MCG/2 ML VIAL 25 MCG IV PUSH ×8 (15:11→15:48)
[2024-06-12] MEDS: HYDROcodone/acetaminophen (*CRX) 5-325 MG TABLET 1 TAB PO (16:52)
== END 2024-06-12 18:55 | disposition home or self-care (01) ==
LOC: ANHED 08:31 → ANH2MED 06-12 05:27 → ANH3MEDSUR 06-13 07:46
PROVIDERS: Nurse Practitioner Gerontology; Urology; Admitting Provider Internal Medicine; Emergency Provider Emergency Medicine; PCP Family Medicine; Visit Provider Nurse Practitioner Acute Care
PROC: (CPT 52352; principal; 2024-06-12 16:30)
DX: N13.2 Hydronephrosis with renal and ureteral calculous obstruction (principal); F41.1 Generalized anxiety disorder; E78.5 Hyperlipidemia, unspecified; R16.0 Hepatomegaly, not elsewhere classified; Z87.442 Personal history of urinary calculi; Z79.899 Other long term (current) drug therapy; Z90.79 Acquired absence of other genital organ(s); Z98.890 Other specified postprocedural states
CPT/HCPCS: 52332; 36415; 74018; 74176; 74420; 80048; 80053; 81001; 81025; 83690; 85025; 87086; 96361; 96374; 96375; 96376; 99285; A9270; C1758; C1769; C2617; G0378; J0690; J1100; J1171; J1885; J2003; J2250; J2405; J2704; J3010; J7030; J7120; Q9966

== ENCOUNTER 2024-06-15 01:04 | Day surgery (SDC) | payer BC, SELFPAY ==
[2024-06-13 12:57] VITALS: BMI 59.5
--- NOTE | 2024-06-13 13:03 | PC.NURSE ---
Report to the Outpatient Waiting Room, entrance under the green pavilion located off [facility], at time _1000_ on date _[id number]_. Planned Procedure Time: _1200_.? Time changes happen often and if your time is changed the preop area will call you the afternoon before. - You and your visitor will be asked to self-screen and do not enter if you have any COVID symptoms. Please call surgeon if you need to reschedule. - A mask is optional within the hospital at this time. Patients may have clear liquids (water, carbonated beverages, clear teas, apple juice) until 3 hours prior to surgery with a maximum of 20 ounces. - No food from midnight until time of surgery and no smoking, or chewing tobacco (or any form of nicotine). No chewing gum, candy or mints. Take only the following medications with a SIP of water on the morning of surgery: ___Escitalopram and if needed hydrocodone.____ DO NOT STOP ANY OF YOUR OTHER PRESCRIPTION MEDICATIONS PRIOR TO SURGERY EXCEPT THE FOLLOWING Hold all vitamins and supplements for 3 days per anesthesiologist. Medications to discontinue per physician Date to take last dose Please no make-up, nail slovak, hairspray, perfume, deodorant, or body powder the day of surgery.? No jewelry (including any body piercings) or valuables the day of surgery, leave them at home.? Please take a shower or bath the night before, or the morning of, surgery with an antibacterial soap.? Wear comfortable, loose fitting clothing.? - Jewelry must be removed prior to entering the operating room.? Rings and piercings that are not removed may be cut off. - The hospital will not accept responsibility for valuables.? - Please leave all valuables, including medications, at home the day of surgery. If you are going home after surgery, a licensed seasonal driver must drive you home.? - NO public transportation without another adult if you receive anesthesia. - We recommend that an adult stay with you for 24 hours following discharge. - We also recommend that you do not drive, make important decision, drink alcoholic beverages, or take any drugs that were not prescribed by your health care provider for at least 24 hours after your discharge time. Follow any additional instructions given to you from your surgeon. Telephone instructions given to __Cheyanne__and asked if any additional questions and then verbalized understanding. Patient advised to call surgeon office or pre surgery nurse liaison [phone] if any additional questions.
[2024-06-15] VITALS (10 sets, daily range): BP systolic 108–155; BP diastolic 71–101; PULSE 62–82; RESP 12–18; TEMP 36.4; O2SAT 97–100
--- NOTE | ~2024-06-15 | XR_ITS ---
EXAMINATION: XR retrograde pyelo w/stent RT DATE: 06/15/2024 10:51 INDICATION: Right internal ureteral stent placement TECHNIQUE: Fluoroscopic images from a right internal ureteral stent placement are submitted for tyson morales 41 seconds of fluoroscopy time. FINDINGS: There is a right double-J internal ureteral stent projecting in expected position, with proximal [place] loop at the level of the renal pelvis and distal loop in the pelvis within the bladder lumen. IMPRESSION: 1. Right internal ureteral stent placement. Please refer to real-time procedural findings for detai ls. Reviewed, dictated and finalized at location A. IMPRESSION: 1. Right internal ureteral stent placement. Please refer to real-time procedu ral findings for details.
--- OUTSIDE RECORDS SUMMARY | 2024-06-15 01:07 | XMS_ITS | Clinical Summary ---
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 Gender Identity Not on file Sexual Orientation Not on file Plan of Treatment Health Maintenance Due Date Last Done Comments Cervical Cancer Screening Pa p Smear (Age 30 to 64) Every 3 Years 1984 Annual Physical 09/08/1987 PHQ-2 (Physician Encentuate) 1996 Hepatitis C 2002 DTaP, Tdap and Td Vaccines ( 1 - Tdap) 09/08/2003 Hepatitis B Vaccines (1 of 3 - 19+ 3-dose series) 09/08/2003 Cervical Cancer Screening Pa p with HPV Testing (Age 30 to 64) Every 5 Years 2014 Cervical Cancer Screening with HPV 2014 COVID-19 Vaccine (2023-2 5 season) 2023 Influenza Adult (#1) 2023 PHQ-2 (Physician Encentuate) 03/22/2024 HPV Vaccines Aged Out No longer [...] patient's age to complete this topic Insurance [facility] Care Teams Hot Car Operator Relationship Specialty Start Date End Date Vito Ashton PA [address] [address] PCP - General PHYSICIAN MUSIC WRITER 03/03/23
--- OUTSIDE RECORDS SUMMARY | 2024-06-15 01:07 | XMS_ITS | Clinical Summary ---
Author Organization [facility] Address [address] [place] [address] Phone Care Team Providers Care Fishing Game Warden Name Role Phone Booker Pinto, Non-Integrated Physician Primary Care Provider Social History [...] - 19+ 3-dose series) 09/08/2003 PAP SMEAR 2005 CERVICAL CANCER SCREENING 2014 HPV/Cotest 2014 PAP SMEAR 2014 INFLUENZA VACCINE (#1) 2023 HPV VACCINES Aged Out No longer eligi ble based on patient's age to complete this topic Care Teams Fishing Game Warden Relationship Specialty Start Date End Date Booker Pinto Non-Integrated PhysicianMD [address] [place] [id number] PCP - General Internal Medicine 05/15/14
--- OUTSIDE RECORDS SUMMARY | 2024-06-15 01:07 | XMS_ITS | Clinical Summary ---
Author Organization [facility] Address [address] [place] [address] Care Team Providers Care Potato Seed Cutter Name Role Phone Unavailable Primary Care Provider Unavailabl e Source Comments [facility] [employer],non-owned Affiliates and Associated Physician Practices is amultiple site organization consisting of ambulatory clinics and hospital sitesin [place], [place] and [place]. This disclosure is being madepursuant to the Care Everywhere program and may not contain all information available regarding this patient. Last updated 17.[facility] [employer] Allergies No known active allergies Medications * [...]
--- NOTE | 2024-06-15 06:17 | WPDHPUPDATE1 ---
History and Physical Update Update Date/Time: 06/15/24 06:17 History and Physical has been reviewed, including an updated exam of the patient. There are NO changes in the patient's condition. Risks, benefits, and alternatives have been discussed and questions answered. Patient agrees to proceed with procedure.
[2024-06-15] MEDS: LACTATED RINGERS 1,000 ML 30 ML IV CONT ×2 (09:40→10:56)
--- NOTE | 2024-06-15 09:45 | WPDANESEPPF ---
Anes - Initial Pre Proc Eval Procedure: Operation Date: 06/15/24 11:15 Proposed Procedures p Cystoscopy, Right Ureteroscopy, Possible Right Retrograde Pyelogram, Possible Right Stone Extraction, Possible Right Stent Placement, Possible Holmium Laser - Abisai Pepper MD Date/Time: 06/15/24 09:45 Surgeon: Abisai Pepper MD Pre Op Diagnosis: right renal stone Patient Data Age: 38 Gender: F Height: 1.57 m Weight: 147.7 kg Allergies Allergy/AdvReac Type Severity Reaction Status Date / Time No Known Allergies Allergy Verified 06/13/24 12:55 Home Medications ?Medication ?Instructions ?Recorded ?Confirmed ?Type escitalopram oxalate 10 mg tablet See Rx Instructions .Route 05/18/24 06/13/24 Rx .COMPLEX #90 tabs hydrocodone 5 mg-acetaminophen 325 1 tablet PO Q6H PRN Pain Rated 4-6 06/12/24 06/13/24 Rx mg tablet #20 tabs tamsulosin 0.4 mg capsule 0.4 mg PO QAM #30 caps 06/12/24 06/13/24 Rx Patient hx anesthesia problems: none Family hx anesthesia problems: none Results Review: All pre-operative results and documents have been reviewed as part of the pre-operative evaluation. [facility] Past Medical History Medical History Chronic LUQ pain Nexplanon insertion 04/11/18 Nexplanon insertion Anxiety HPV in female Abnormal Pap smear of cervix 04/10/2019 ASCUS +HPV; 07/09/2020 +hpv Kidney stone (~2010) HLD (hyperlipidemia) Surgical History Surgical History History of bilateral salpingectomy 03/28/20 Hscope D&C/ Jayshree Endometrial ablation / Lscope Bilateral Salpingectomy; Menometrorrhagia , Dysmenorrhea , Undesired fertility History of endometrial ablation 03/28/20 Hscope D&C/ Jayshree Endometrial ablation / Lscope Bilateral Salpingectomy; Menometrorrhagia , Dysmenorrhea , Undesired fertility History of dilation and curettage 03/28/20 Hscope D&C/ Jayshree Endometrial ablation / Lscope Bilateral Salpingectomy; Menometrorrhagia , Dysmenorrhea , Undesired fertility History of colposcopy with cervical biopsy 05/05/17 benign H/O lithotripsy 2011 x4 Family History Family History Father Family history of chronic obstructive pulmonary disease Malignant neoplasm of prostate Family history of diabetes mellitus in first degree relative Family history of congestive heart failure Diabetes mellitus Hypertension Family history of cardiovascular disease Heart disease Cerebrovascular accident Mother Family history of diabetes mellitus in first degree relative Diabetes mellitus Hypertension Heart disease Social History Social History Social History: Smoking status: Never smoker Second hand tobacco smoke exposure: No Alcohol intake: current Drinks per week: 1 Alcohol use details: Occasionally Substance use: current Substance use type: marijuana Other substance usage details: Occasionally a THC gummie Last use: 06/10/24 Do You Feel Safe in your Home?: Yes Lack of Transportation: No Lack of Food: Never True Current Housing: I Have Housing Concerned About Future Housing: No Difficulty Paying Gas/Electric Bills: No Difficulty Paying for Meds: No Currently Unemployed: No Education: Bachelor's Degree Difficulty w/ Childcare or Family Care: No Living arrangements: with family Occupation/Education: occupation Additional occupation/education comments: teacher Gender identity (if verbalized by the patient): Female Sexual Orientation (if Verbalized by the Patient): Straight or Heterosexual Spiritual care concerns: No Anes - Eval Final PreProcedure Day of Procedure 06/15/24 09:45 Patient weight: morbidly obese Lungs: normal air movement Airway: Mallampati scale class II Neurological: alert and oriented Last oral intake: >/= 8 hours ASA classification: III Emergent: no Anesthetic plan: proceed Anesthesia type and monitoring: general LMA and standard monitoring Results Review: All pre-operative results and documents have been reviewed as part of the pre-operative evaluation. BMI 59, borderline hyperlipidemia. Informed Consent: The patient's anesthetic plan and its attendant risks and benefits were discussed with the patient/family/POA. Questions were solicited and answers provided to the satisfaction of the patient/family/POA.
--- NOTE | 2024-06-15 10:00 | SUR.PREOP ---
[address] ORELLANA ABOUT UPREG NEED FOR TODAY. PT HAS DOCUMENTED UPREG FROM 06/12/24. DENIES NEED TO REPEAT.
[2024-06-15] MEDS: ceFAZolin 3 GM/D5W 100 ML 100 ML IVPB (10:08)
--- NOTE | 2024-06-15 10:48 | W.PM.PROC2 ---
Procedure Note - Detailed Date of Procedure 06/15/24 Pre-op Diagnosis Right renal stone Post-op Diagnosis Same Procedure Performed Cystoscopy, right ureteral stent removal, right ureteroscopy with laser lithotripsy, stone extraction, retrograde pyelogram and right ureteral stent replacement Surgeon Abisai ePpper MD Anesthesia General Description of Procedure Patient is brought to the operative suite where she has prepped draped in routine sterile fashion while in dorsal lithotomy position after the uneventful induction of a general LMA anesthetic. Cystoscopy was undertaken with a 19 F rigid cystoscope. The tip of her indwelling stent is grasped and brought to the external urethral meatus. A 0.035 in glidewire was advanced into the right renal pelvis. Distal ureter was dilated with an 8 F Tiemann F dilator and a safety wire was placed. A ureteral access sheath (11 F/13 F) is placed and ureteroscopy was undertaken with a 7.5 F digital ureteral scope. A 1 cm stone is easily identified. Using a 200 micron Camacho laser fiber I dusted the stone into tiny little particles. This was a soft stone it dusted early in the course of the procedure. All particles, within a very short period of time, were 2 mm or less. I removed 1 of these with a 1.9 F disposable stone basket. Retrograde pyelography was performed to ensure inspection of all calices. Ureteral scope was removed and a 4.8 F variable length stent is replaced in appropriately positioned. Patient was taken recovery room having tolerated the procedure well. Drains Yes Packing Yes Pathology None sent Complications No immediate complications
[2024-06-15] MEDS: fentaNYL CITRATE INJ (*CRX) 100 MCG/2 ML VIAL 25 MCG IV PUSH ×4 (11:22→11:35)
[2024-06-15] MEDS: oxyCODONE HCL (*CRX) 5 MG TAB IR PO (12:24)
== END 2024-06-15 13:00 | disposition home or self-care (01) ==
PROVIDERS: PCP Family Medicine; Visit Provider Urology
PROC: (CPT 52352; principal; 2024-06-15 11:15)
DX: N20.0 Calculus of kidney (principal); E78.5 Hyperlipidemia, unspecified; F41.9 Anxiety disorder, unspecified; G89.29 Other chronic pain; R10.32 Left lower quadrant pain; F12.90 Cannabis use, unspecified, uncomplicated; E66.01 Morbid (severe) obesity due to excess calories; Z68.44 Body mass index [BMI] 60.0-69.9, adult; Z79.891 Long term (current) use of opiate analgesic; Z98.890 Other specified postprocedural states; Z98.891 History of uterine scar from previous surgery; Z80.42 Family history of malignant neoplasm of prostate; Z82.49 Family history of ischemic heart disease and other diseases of the circulatory system
CPT/HCPCS: 52356; 74420; 82365; 88300; A9270; C1758; C1769; C2617; J0690; J1100; J2003; J2405; J2704; J3010; J7120; Q9966

== ENCOUNTER 2024-06-16 14:29 | Emergency (ER) | payer BC, SELFPAY ==
--- NOTE | ~2024-06-16 | CT_ITS ---
EXAMINATION: CT abdomen pelvis wo con DATE: 06/16/2024 16:48 INDICATION: Flank pain TECHNIQUE: Computed tomography (CT) of the abdomen and pelvis was performed without intravenous contr ast. Automated exposure control and iterative reconstruction technique were employed. The dose-length product was 1837.81 mGy-cm. COMPARISON: 06/11/2024 FINDINGS: Postoperative changes at the left infrahilar region consistent with partial pneumonectomy, likely of the lingula. Heart size is normal. No pericardial or pleural effusion. Diffuse hepatic steatosis. Gal lbladder, spleen, pancreas and left adrenal gland are normal. 1.4 cm macroscopic fat attenuation righ t adrenal myelolipoma. Left kidney is normal. There are 4 small stone fragments in the left kidney me asuring up to 4 mm. Right internal ureteral stent in expected position with loops formed in the in an upper pole infundibulum of the right kidney and this loop formed in the bladder. There is mild stran ding along the right ureter but no ureteral stones along side the catheter. Anteverted uterus and gonsalo ateral adnexa are unremarkable. Bowels are normal. No free intraperitoneal gas or fluid. No pathologi gt enlarged abdominal or pelvic lymphadenopathy. Moderate lower thoracic spondylosis with chronic mild anterior wedging at T11-L1. IMPRESSION: 1. Unchanged likely interval lithotripsy a few small bone fragments in the lower pole calyces of the right kidney and right internal ureteral stent placement which is in expected position with no stone s seen along the right ureter. Reviewed, dictated and finalized at location B. IMPRESSION: 1. Unchanged likely interval lithotripsy a few small bone fragments in the lowe r pole calyces of the right kidney and right internal ureteral stent placement which is in expected position with no stones seen along the right ureter.
[2024-06-16 14:31] VITALS: BP 145/97; PULSE 76; RESP 18; TEMP 36.4; O2SAT 99
--- OUTSIDE RECORDS SUMMARY | 2024-06-16 14:31 | XMS_ITS | Clinical Summary ---
Author Organization [facility] Address [address] [place] [address] Care Team Providers Care Triage Specialist Name Role Phone Unavailable Primary Care Provider Unavailabl e Source Comments [facility] [employer],non-owned Affiliates and Associated Physician Practices is amultiple site organization consisting of ambulatory clinics and hospital sitesin [place], [place], [place] and [place]. This disclosure is being madepursuant to the Care Everywhere program and may not contain all information available regarding this patient. Last updated 17.[facility] [employer] Allergies No known active allergies Medications * [...]
--- OUTSIDE RECORDS SUMMARY | 2024-06-16 14:31 | XMS_ITS | Clinical Summary ---
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 Gender Identity Not on file Sexual Orientation Not on file Plan of Treatment Health Maintenance Due Date Last Done Comments Cervical Cancer Screening Pa p Smear (Age 30 to 64) Every 3 Years 1984 Annual Physical 09/08/1987 PHQ-2 (Physician InboundWriter) 1996 Hepatitis C 2002 DTaP, Tdap and Td Vaccines ( 1 - Tdap) 09/08/2003 Hepatitis B Vaccines (1 of 3 - 19+ 3-dose series) 09/08/2003 Cervical Cancer Screening Pa p with HPV Testing (Age 30 to 64) Every 5 Years 2014 Cervical Cancer Screening with HPV 2014 COVID-19 Vaccine (2023-2 5 season) 2023 Influenza Adult (#1) 2023 PHQ-2 (Physician InboundWriter) 03/22/2024 HPV Vaccines Aged Out No longer [...] patient's age to complete this topic Insurance [facility] Care Teams Eyedotter Relationship Specialty Start Date End Date Vito Ashton PA [address] [address] PCP - General PHYSICIAN INDUSTRIAL ENG 03/03/23
--- OUTSIDE RECORDS SUMMARY | 2024-06-16 14:31 | XMS_ITS | Clinical Summary ---
Author Organization [facility] Address [address] [place] [address] Phone Care Team Providers Care Venetian Blind Cleaner Name Role Phone Booker Pinto, Non-Integrated Physician [...] SMEAR 2005 CERVICAL CANCER SCREENING 2014 HPV/Cotest (30-65) 2014 PAP SMEAR 2014 INFLUENZA VACCINE (#1) 2023 HPV VACCINES Aged Out No longer eligi ble based on patient's age to complete this topic Care Teams Venetian Blind Cleaner Relationship Specialty Start Date End Date Booker Pinto, Non-Integrated PhysicianMD [address] [place] [address] PCP - General Internal Medicine 05/15/14
--- OUTSIDE RECORDS SUMMARY | 2024-06-16 15:48 | XMS_ITS | Clinical Summary ---
Author Organization [facility] Address [address] [place] [address] Care Team Providers Care E Commerce Director Name Role Phone Unavailable Primary Care Provider Unavailabl e Source Comments [facility] [employer],non-owned Affiliates and Associated Physician Practices is amultiple site organization consisting of ambulatory clinics and hospital sitesin [place], [place], [place] and [place]. This disclosure is being madepursuant to the Care Everywhere program and may not contain all information available regarding this patient. Last updated 17.[facility] [employer] Allergies No known active allergies Medications * [...]
--- OUTSIDE RECORDS SUMMARY | 2024-06-16 15:48 | XMS_ITS | Clinical Summary ---
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 Gender Identity Not on file Sexual Orientation Not on file Plan of Treatment Health Maintenance Due Date Last Done Comments Cervical Cancer Screening Pa p Smear (Age 30 to 64) Every 3 Years 1984 Annual Physical 09/08/1987 PHQ-2 (Physician [employer]) 1996 Hepatitis C 2002 DTaP, Tdap and Td Vaccines ( 1 - Tdap) 09/08/2003 Hepatitis B Vaccines (1 of 3 - 19+ 3-dose series) 09/08/2003 Cervical Cancer Screening Pa p with HPV Testing (Age 30 to 64) Every 5 Years 2014 Cervical Cancer Screening with HPV 2014 COVID-19 Vaccine (2023-2 5 season) 2023 Influenza Adult (#1) 2023 PHQ-2 (Physician [employer]) 03/22/2024 HPV Vaccines Aged Out No longer eligi ble based on patient's age to complete this topic Meningococcal B Vaccine Aged Out No l onger eligible based on patient's age to complete this topic Meningococcal Vaccine Aged Out No gurpreet narsa eligible based on patient's age to complete this topic Pneumococcal Vaccine: Pediat rics (0 to 5 Years) and At-Risk Patients (6 to 64 Years) Aged Out No longer eligible b ased on patient's age to complete this topic RSV Immunizations Under 20 Months Aged Out No longer eligible based on patient's age to complete this topic Insurance [facility] Care Teams Metal Punch Press Operator Relationship Specialty Start Date End Date Vito Ashton PA [address] [address] PCP - General PHYSICIAN FLAME CUTTING MACHINE OPERATOR HELPER 03/03/23
--- OUTSIDE RECORDS SUMMARY | 2024-06-16 15:48 | XMS_ITS | Clinical Summary ---
Author Organization [facility] Address [address] [place] [address] Phone Care Team Providers Care Individual Pension Consultant Name Role Phone Booker Pinto, Non-Integrated Physician [...] age to complete this topic Care Teams Individual Pension Consultant Relationship Specialty Start Date End Date Booker Pinto, Non-Integrated PhysicianMD [address] [place] [address] PCP - General Internal Medicine 05/15/14
[2024-06-16 15:53] LABS: Basophils Absolute Auto 0.1 K/mm3 (0.0-0.1); Basophils Percent Auto 0.4 % (0.2-1.2); Eosinophils Absolute Auto 0.2 K/mm3 (0-0.3); Eosinophils Percent Auto 1.1 % (0-4.4); Hematocrit 38.9 % (37.0-47.0); Hemoglobin 13.1 g/dL (12.0-15.0); Immature Granulocyte Absolute 0.07 K/mm3 (0.00-0.031); Immature Granulocyte Percent A 0.4 % (0-0.5); Lymphocytes Absolute Auto 3.48 K/mm3 (0.9-3.2); Lymphocytes Percent Auto 22.3 % (18.3-44.2); Mean Corpuscular HGB Conc 33.7 g/dl (32-36); Mean Corpuscular Hemoglobin 30.7 pg (26-34); Mean Corpuscular Volume 91.1 fl (80-100); Mean Platelet Volume 10.2 fl (7.4-10.4); Monocytes Absolute Auto 0.9 K/mm3 (0.1-0.6); Monocytes Percent Auto 5.9 % (2.6-8.5); Neutrophils Absolute Auto 10.9 K/mm3 (1.3-6.7); Neutrophils Percent Auto 69.9 % (45.5-73.1); Platelet Count Result 272 k/mm3 (150-375); Red Blood Count 4.27 M/mm3 (4.2-5.4); Red Cell Distribution Width 13.5 % (11.5-14.5); White Blood Count 15.6 K/mm3 (4.5-10.0)
[2024-06-16] MEDS: ONDANSETRON INJ 4 MG/2 ML VIAL IV PUSH (15:53)
[2024-06-16] MEDS: SODIUM CHLORIDE 0.9% IV 1,000 ML 150 ML IV CONT (15:54)
[2024-06-16] MEDS: HYDROmorphone HCL INJ (*CRX) 1 MG/ML SYR IV PUSH ×2 (15:55→17:29)
[2024-06-16 16:00] VITALS: BP 143/87; PULSE 56; RESP 18; O2SAT 98
[2024-06-16 16:03] LABS: Alanine Aminotransferase 44 U/L (6-35); Albumin Level 3.9 g/dL (3.5-5.1); Alkaline Phosphatase 60 U/L (38-126); Anion Gap 7 mmol/L (4-12); Aspartate Amino Transferase 27 U/L (14-36); Bilirubin,Total 0.3 mg/dL (0.2-1.3); Blood Urea Nitrogen 13 mg/dL (7-17); Calcium 8.8 mg/dL (8.4-10.2); Carbon Dioxide 29 mmol/L (22-30); Chloride 103 mmol/L (98-107); Estimated CRCL calculation 140 ml/min; Estimated Glomerular Filt Rate > 60; Glucose 129 mg/dL (65-110); Potassium 3.6 mmol/L (3.4-5.0); Sodium 139 mmol/L (137-145)
[2024-06-16 17:00] VITALS: BP 141/86; PULSE 55; RESP 18; O2SAT 100
--- NOTE | 2024-06-16 17:23 | ED_ITS ---
HPI - General Adult General Chief complaint: Urogenital-Female Stated complaint: flank pain Time Seen by Provider: 06/16/24 15:30 Source: patient and family Mode of arrival: ambulatory Limitations: no limitations History of Present Illness HPI narrative: 38-year-old with a history of kidney stones status post renal stent and lithotripsy done yesterday here with a complains of severe right-sided abdominal started few hours ago. She states that she has taken 2 hydrocodone tablets given at the time of discharge and her pain has not got any better. She denies any fever or chills has some blood in the urine. Onset (ago): hour(s) (2) Location: abdomen Radiation: back Severity: moderate Severity scale (1-10): 9 Quality: aching Pain Consistency: constant Relieving factors: none Exacerbating factors: none Associated symptoms: denies other symptoms Related Data Allergies Allergy/AdvReac Type Severity Reaction Status Date / Time No Known Allergies Allergy Verified 06/16/24 14:30 Review of Systems 2 Review of Systems: All systems reviewed & are unremarkable except as noted in HPI and below Constitutional: Constitutional: Reports no additional constitutional complaints Eyes: Eyes: Reports no additional eye complaints ENT: Reports system reviewed and no additional complaints, except as documented Cardiovascular: Cardiovascular: Reports no additional cardiovascular complaints Respiratory: Respiratory: Reports no additional respiratory complaints Gastrointestinal: Gastrointestinal: Reports as per HPI Genitourinary: Genitourinary: Reports as per HPI Musculoskeletal: Musculoskeletal: Reports no additional musculoskeletal complaints Integumentary/Breasts: Skin/Breast: Reports system reviewed and no additional complaints, except as docu Neurologic: Reports system reviewed and no additional complaints, except as documented Psychiatric: Psychiatric: Reports no additional psychiatric complaints COUNT INCLUDES [facility] Past Medical History Medical History Chronic LUQ pain Nexplanon insertion 04/11/18 Nexplanon insertion Anxiety HPV in female Abnormal Pap smear of cervix 04/10/2019 ASCUS +HPV; 07/09/2020 +hpv Kidney stone (~2010) HLD (hyperlipidemia) Surgical History Surgical History History of bilateral salpingectomy 03/28/20 Hscope D&C/ Jayshree Endometrial ablation / Lscope Bilateral Salpingectomy; Menometrorrhagia , Dysmenorrhea , Undesired fertility History of endometrial ablation 03/28/20 Hscope D&C/ Jayshree Endometrial ablation / Lscope Bilateral Salpingectomy; Menometrorrhagia , Dysmenorrhea , Undesired fertility History of dilation and curettage 03/28/20 Hscope D&C/ Jayshree Endometrial ablation / Lscope Bilateral Salpingectomy; Menometrorrhagia , Dysmenorrhea , Undesired fertility History of colposcopy with cervical biopsy 05/05/17 benign H/O lithotripsy 2010 x4 Family History Family History Father Family history of chronic obstructive pulmonary disease Malignant neoplasm of prostate Family history of diabetes mellitus in first degree relative Family history of congestive heart failure Diabetes mellitus Hypertension Family history of cardiovascular disease Heart disease Cerebrovascular accident Mother Family history of diabetes mellitus in first degree relative Diabetes mellitus Hypertension Heart disease Social History Social History Social History: Smoking status: Never smoker Second hand tobacco smoke exposure: No Alcohol intake: current Drinks per week: 1 Alcohol use details: Occasionally Substance use: current Substance use type: marijuana Other substance usage details: Occasionally a THC gummie Last use: 06/10/24 Do You Feel Safe in your Home?: Yes Lack of Transportation: No Lack of Food: Never True Current Housing: I Have Housing Concerned About Future Housing: No Difficulty Paying Gas/Electric Bills: No Difficulty Paying for Meds: No Currently Unemployed: No Education: Bachelor's Degree Difficulty w/ Childcare or Family Care: No Living arrangements: with family Occupation/Education: occupation Additional occupation/education comments: teacher Gender identity (if verbalized by the patient): Female Sexual Orientation (if Verbalized by the Patient): Straight or Heterosexual Spiritual care concerns: No Exam 2 Narrative: GENERAL: Well-appearing, morbidly obese, and in no acute distress. HEAD: Normocephalic, atraumatic. EYES: PERRLA and EOMI. ENT: Nares clear, no rhinorrhea or epistaxis. Mucous membranes moist. NECK: Supple. CHEST: Clear to auscultation. No respiratory distress. HEART: Regular rate and rhythm. No murmur heard. Normal peripheral pulses. ABDOMEN: Soft, nontender, nondistended, normal active bowel sounds. EXTREMITIES: Normal range of motion. No edema. SKIN: Warm, dry, no rash. NEURO: No focal deficits. Alert and oriented x3. PSYCH: Normal mood and affect. Course Course Emergency Course: Notified patient and family about her lab work, CT findings. She states pain medication given earlier help her a little bit now started having pain again.Discused with Dr. Lynn , pt can be discharged home and follow up in the office. Vital Signs Vital signs: Vital Signs Temperature 36.4 C 06/16/24 14:31 Pulse Rate 76 06/16/24 14:31 Respiratory Rate 18 06/16/24 14:31 Blood Pressure 145/97 H 06/16/24 14:31 Pulse Oximetry 99 06/16/24 14:31 Oxygen Delivery Room Air 06/16/24 14:31 Temperature 36.4 C 06/16/24 14:31 Pulse Rate 56 L 06/16/24 16:00 Respiratory Rate 18 06/16/24 16:00 Blood Pressure 143/87 H 06/16/24 16:00 Pulse Oximetry 98 06/16/24 16:00 Oxygen Delivery Room Air 06/16/24 14:31 Medical Decision Making Differential Diagnosis Differential Diagnosis: UTI, pyelonephritis, displacement of the stent, ureteral blockage Medical Records Medical records reviewed: Yes I reviewed the external patient's medical records. Vital Signs Vital Signs: Vital Signs Temperature 36.4 C 06/16/24 14:31 Pulse Rate 76 06/16/24 14:31 Respiratory Rate 18 06/16/24 14:31 Blood Pressure 145/97 H 06/16/24 14:31 Pulse Oximetry 99 06/16/24 14:31 Oxygen Delivery Room Air 06/16/24 14:31 Temperature 36.4 C 06/16/24 14:31 Pulse Rate 56 L 06/16/24 16:00 Respiratory Rate 18 06/16/24 16:00 Blood Pressure 143/87 H 06/16/24 16:00 Pulse Oximetry 98 06/16/24 16:00 Oxygen Delivery Room Air 06/16/24 14:31 Lab Data Lab results reviewed: Yes I reviewed the patient's lab results. 06/16/24 15:48 06/16/24 15:48 Labs: Lab Results 06/16/24 06/16/24 Range/Units 15:48 17:19 WBC 15.6 H (4.5-10.0) K/mm3 RBC 4.27 (4.2-5.4) M/mm3 Hgb 13.1 (12.0-15.0) g/dL Hct 38.9 (37.0-47.0) % MCV 91.1 (80-100) fl MCH 30.7 (26-34) pg MCHC 33.7 (32-36) g/dl RDW 13.5 (11.5-14.5) % Plt Count 272 (150-375) k/mm3 MPV 10.2 (7.4-10.4) fl Immature Gran % (Auto) 0.4 (0-0.5) % Neut % (Auto) 69.9 (45.5-73.1) % Lymph % (Auto) 22.3 (18.3-44.2) % [place] % (Auto) 5.9 (2.6-8.5) % Eos % (Auto) 1.1 (0-4.4) % Baso % (Auto) 0.4 (0.2-1.2) % Lymph # (Auto) 3.48 H (0.9-3.2) K/mm3 [place] # (Auto) 0.9 H (0.1-0.6) K/mm3 Eos # (Auto) 0.2 (0-0.3) K/mm3 Baso # (Auto) 0.1 (0.0-0.1) K/mm3 Abs Immat Gran (auto) 0.07 H (0.00-0.031) K/mm3 Absolute Neuts (auto) 10.9 H (1.3-6.7) K/mm3 Absolute Nucleated RBC 0.000 (0.0-0.012) K/mm3 Nucleated RBC % 0.0 (0.0-0.2) % Sodium 139 (137-145) mmol/L Potassium 3.6 (3.4-5.0) mmol/L Chloride 103 (98-107) mmol/L Carbon Dioxide 29 (22-30) mmol/L Anion Gap 7 (4-12) mmol/L BUN 13 (7-17) mg/dL Creatinine 0.64 L (0.7-1.0) mg/dL Estim Creat Clear Calc 140 ml/min Estimated GFR > 60 (59 - ) Glucose 129 H (65-110) mg/dL Calcium 8.8 (8.4-10.2) mg/dL Total Bilirubin 0.3 (0.2-1.3) mg/dL AST 27 (14-36) U/L ALT 44 H (6-35) U/L Alkaline Phosphatase 60 (38-126) U/L Total Protein 7.0 (6.3-8.2) g/dL Albumin 3.9 (3.5-5.1) g/dL Urine Color [place] H (Yellow) Urine Appearance Turbid H (Clear) Urine pH 7.0 (5.0-9.0) Ur Specific [place] 1.020 (1.001-1.035) Urine Protein 3+ H (Negative) mg/dL Urine Glucose (UA) Negative (Negative) mg/dL Urine Ketones Negative (Negative) mg/dL Ur Blood (Man) 3+ H (Negative) Urine Nitrate Negative (Negative) Urine Bilirubin Negative (Negative) Urine Urobilinogen 1.0 (<2.0) mg/dL Add Ur Microanalysis Reviewed Leukocyte Esterase Rfl 3+ H (Negative) CARLIE/UL Urine RBC >100 H (0-2) /hpf Urine WBC 51-100 H (0-3) /hpf Ur Squamous Epith Cells Occasional (Few) /hpf Calcium Oxalate Crystal Present (None) /hpf Urine Bacteria None seen /hpf Urine Casts 0-2 Imaging Data Radiologist's impression: ITS Impressions Abdomen/Pelvis CT 06/16/24 16:50 IMPRESSION: 1. Unchanged likely interval lithotripsy a few small bone fragments in the lower pole calyces of the right kidney and right internal ureteral stent placement which is in expected position with no stones seen along the right ureter. Discharge Plan Discharge Clinical Impression: Renal colic on right side Patient Disposition: Home, Self-Care Condition: Stable Instructions: Antibiotic Form, Kidney Stones (ED) Additional Instructions: Continue home pain medication, antibiotic, drink more fluids, follow-up with Dr. Medina says scheduled. You can take ketorolac tablet the pain is not getting any better with hydrocodone tab Patient Language: Rwandan Prescriptions: New ketorolac 10 mg tablet 10 mg PO Q6H PRN (Reason: pain) Qty: 20 0RF Rx Instructions: maximum total duration of 5 days from all oral, intranasal, or parenteral formulations No Action hydrocodone-acetaminophen 5-325 mg tablet 1 - 2 tablet PO Q6H PRN (Reason: pain) Qty: 20 0RF cephalexin 500 mg capsule 500 mg PO Q8H Qty: 9 0RF tamsulosin 0.4 mg Capsule 0.4 mg PO QAM Qty: 30 0RF hydrocodone-acetaminophen 5-325 mg Tablet 1 tablet PO Q6H PRN (Reason: Pain Rated 4-6) Qty: 20 0RF escitalopram oxalate 10 mg tablet See Rx Instructions .ROUTE .COMPLEX Qty: 90 3RF Dose Instruction: TAKE 1 TABLET DAILY Rx Instructions: TAKE 1 TABLET DAILY Follow-up/Referrals: Vinay Trevizo MD [Primary Care Provider] - Time of Disposition: 18:08
[2024-06-16 17:38] LABS: Add Urine Microscopic? YES; Appearance Urine Turbid (Clear); Bacteria Urine None Seen /hpf; Bilirubin Urine Negative (Negative); Blood Urine 3+ (Negative); Calcium Oxalate Crystals Urine Present /hpf; Glucose Urine UA Negative (Negative); Ketones Urine Negative (Negative); Leukocyte Esterase Ur 3+ LEU/UL (Negative); Need Manual Microscopic Reviewed; Nitrate Urine Negative (Negative); Non Pathogenic Casts 0-2; Protein Urine 3+ mg/dL (Negative); RBC Urine >100 /hpf (0-2); Squamous Epithelial Cell Urine Occasional /hpf (Few); WBC Urine 51-100 /hpf (0-3)
[2024-06-16 17:39] LABS: Color Urine Orange (Yellow)
[2024-06-16 18:40] VITALS: BP 133/85; PULSE 61; RESP 18; O2SAT 100
== END 2024-06-16 18:41 | disposition home or self-care (01) ==
PROVIDERS: Emergency Provider Family Medicine; PCP Family Medicine
DX: N23 Unspecified renal colic (principal); E78.5 Hyperlipidemia, unspecified
CPT/HCPCS: 36415; 74176; 80053; 81001; 85025; 87086; 96361; 96374; 96375; 96376; 99284; J1171; J2405; J7030

== ENCOUNTER 2024-06-17 16:29 | Emergency (ER) | payer BC, SELFPAY ==
--- NOTE | ~2024-06-17 | XR_ITS ---
CHEST RADIOGRAPH CLINICAL HISTORY: fever post op . COMPARISON: None available TECHNIQUE: Single portable view of the chest. FINDINGS The cardiomediastinal silhouette is enlarged. The lungs are clear. IMPRESSION: No focal infiltrate or effusion. Reviewed, dictated and finalized at location A.
--- NOTE | ~2024-06-17 | CT_ITS ---
CLINICAL INDICATION: Right flank pain COMPARISON: 06/16/2024 and dating back to 06/11/2024. TECHNIQUE: Multiple contiguous axial images of the abdomen and pelvis were performed without the admi nistration of intravenous contrast The dose-length product (DLP) was 1374.22 mGy-cm. Automated exposure control and iterative reconstruction technique were employed. FINDINGS/OBSERVATIONS: Visualized lower thorax: The bilateral lung bases are clear. The heart is of normal size, without pericardial effusion. Small hiatal hernia is present. Liver: The liver demonstrates homogeneous attenuation and is enlarged measuring 20 cm in longitudinal dimens ion. Gallbladder and biliary system: The gallbladder is only minimally distended, and otherwise unremarkable. Pancreas: Limited evaluation of the pancreas secondary to the lack of intravenous contrast. Spleen: The spleen demonstrates homogeneous attenuation and is borderline enlarged measuring 12 cm in longitu dinal dimension. Kidneys: Right sided double-J stent is redemonstrated, decompressing the right kidney and extending into the b ladder. Interval enlargement of a nonobstructing calculus within the lower pole of the right kidney not prese nt on the 06/11/2024 examination, and measuring 5 mm on the 06/16/2024 examination, and now increasing to 8 mm on the current study. No additional stones are present within the right kidney, or along the course of the right ureter. The left kidney is unremarkable. Adrenal glands: Unremarkable. Gastrointestinal tract: Colonic diverticulosis without surrounding inflammatory change. Fecal stasis within the colon. Appendix: The appendix is not definitively visualized. However, no pericecal inflammatory change is identified suggest the presence of acute appendicitis. Vasculature: Unremarkable. Lymph nodes: Limited evaluation without intravenous contrast. Pelvic structures: The bladder is decompressed with the distal end of the double-J stent, and otherwise unremarkable. Th e uterus is anteverted and anteflexed, and otherwise unremarkable. Body wall and musculoskeletal: Small fat-containing umbilical hernia. No significant degenerative disease within the lower thoracic or lumbosacral spine. IMPRESSION: Interval enlargement of a nonobstructing stone within the lower pole of the right kidney, an interval change from 06/11/2024, as detailed above. Double-J stent in good position without ureteral calculi. Reviewed, dictated and finalized at location A. IMPRESSION: Interval enlargement of a nonobstructing stone within the lower pole of the rig ht kidney, an interval change from 06/11/2024, as detailed above. Double-J stent in good position without ureteral calculi.
--- OUTSIDE RECORDS SUMMARY | 2024-06-17 16:32 | XMS_ITS | Clinical Summary ---
Author Organization [facility] Address [address] [place] [address] Care Team Providers Care Envelope Maker Name Role Phone Unavailable Primary Care Provider Unavailabl e Source Comments [facility],non-owned Affiliates and Associated Physician Practices is amultiple site organization consisting of ambulatory clinics and hospital sitesin [place], [place], [place] and [place]. This disclosure is being madepursuant to the Care Everywhere program and may not contain all information available regarding this patient. Last updated 17.[facility] Allergies No known active allergies Medications * [...]
--- OUTSIDE RECORDS SUMMARY | 2024-06-17 16:32 | XMS_ITS | Clinical Summary ---
Author Organization [facility] Address [address] [place] [address] Phone Care Team Providers Care Grant Writer Name Role Phone Booker Pinto, Non-Integrated Physician [...] age to complete this topic Care Teams Grant Writer Relationship Specialty Start Date End Date Booker Pinto, Non-Integrated PhysicianMD [address] [place] [address] PCP - General Internal Medicine 05/15/14
--- OUTSIDE RECORDS SUMMARY | 2024-06-17 16:32 | XMS_ITS | Clinical Summary ---
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 Gender Identity Not on file Sexual Orientation Not on file Plan of Treatment Health Maintenance Due Date Last Done Comments Cervical Cancer Screening Pa p Smear (Age 30 to 64) Every 3 Years 1984 Annual Physical 09/08/1987 PHQ-2 (Physician [employer]) 1996 Hepatitis C 2002 DTaP, Tdap and Td Vaccines ( 1 - Tdap) 09/08/2003 Hepatitis B Vaccines (1 of 3 - 19+ 3-dose series) 09/08/2003 Cervical Cancer Screening Pa p with HPV Testing (Age 30 to 64) Every 5 Years 2014 Cervical Cancer Screening with HPV 2014 COVID-19 Vaccine (2023-2 5 season) 2023 Influenza Adult (#1) 2023 PHQ-2 (Physician [employer]) 03/22/2024 HPV Vaccines Aged Out No longer [...] patient's age to complete this topic Insurance [facility] Care Teams Computer Systems Security Analyst Relationship Specialty Start Date End Date Vito Ashton PA [address] [address] PCP - General PHYSICIAN STOCK FEEDER 03/03/23
--- OUTSIDE RECORDS SUMMARY | 2024-06-17 16:32 | XMS_ITS | Continuity of Care Document ---
Author Organization [facility] Address [address] [place] [address] Phone Care Team Providers Care Pharmaceutical Sales Specialist Name Role Phone Unavailable Unavailable Unavailable Advance Directives Directive Yes / No Effective Date File Name No Information Encounters Encounter Description Practice Location Reason(s) For Visit Diagnoses Date Provider Providers Copied on Encounter [facility], [address], [place], [place], [id number], [place] tel:[phone] [facility] No Information No Information Referring Provider: DAMEON Weeks, [facility] [address], [address]. tel:[phone] Family History Family Member Type Diagnosis Age At Onset No Information Payers Payer name Insurance type Covered green party ID Authoriza tion(s) No Information Social History Type Description Quantity Date Captured Comments Sex Female Smoking Status No Information Chief Complaint And Reason For Visit No Information History Of Present Illness Encounter Date Complaint History Of Prese nt Illness No Information Instructions Date Instruction Additional Infor mation No Information Assessments Type Assessment Date No Information
[2024-06-17 16:34] VITALS: BP 136/88; PULSE 88; RESP 16; TEMP 37.1; O2SAT 98
--- NOTE | 2024-06-17 17:29 | ED.FEVER ---
HPI - Fever General Chief Complaint: Fever Stated Complaint: Fever, Had new urinary stent placed 06/14 Time Seen by Provider: 06/17/24 17:20 History of Present Illness HPI Narrative: 38-year-old female with history of nephrolithiasis, recently undergone multiple urologic procedures this last week including ureteral stent placement, retrograde pyelogram, lithotripsy. She has been here several times this past few days for urological issues. She was otherwise doing well after discharge yesterday when a change her medications to include ketorolac rather than [place] for analgesia. She noted that she was feeling feverish and had a high fever of 101.3 at home which prompted her to call her urologist office. She got the exchange recommended going to the ER for blood work. Patient is very tearful in triage but states that her pain is tolerable now and doing better than yesterday. She is still having vague urinary symptoms are unchanged from her last few days. No hematuria. No back pain, chest pain, abdominal pain, shortness a breath. No new leg swelling or calf cramping. No headache or vision changes. She took ketorolac at home and a dose of her Keflex that she was prescribed several days ago and noted that her fever broke when she came to the ER. Related Data Allergies Allergy/AdvReac Type Severity Reaction Status Date / Time No Known Allergies Allergy Verified 06/17/24 16:30 Review of Systems Review of Systems: As reviewed above in HPI [facility] Past Medical History Medical History Chronic LUQ pain Nexplanon insertion 04/11/18 Nexplanon insertion Anxiety HPV in female Abnormal Pap smear of cervix 04/10/2019 ASCUS +HPV; 07/09/2020 +hpv Kidney stone (~2010) HLD (hyperlipidemia) Surgical History Surgical History History of bilateral salpingectomy 03/28/20 Hscope D&C/ Jayshree Endometrial ablation / Lscope Bilateral Salpingectomy; Menometrorrhagia , Dysmenorrhea , Undesired fertility History of endometrial ablation 03/28/20 Hscope D&C/ Jayshree Endometrial ablation / Lscope Bilateral Salpingectomy; Menometrorrhagia , Dysmenorrhea , Undesired fertility History of dilation and curettage 03/28/20 Hscope D&C/ Jayshree Endometrial ablation / Lscope Bilateral Salpingectomy; Menometrorrhagia , Dysmenorrhea , Undesired fertility History of colposcopy with cervical biopsy 05/05/17 benign H/O lithotripsy 2010 x4 Family History Family History Father Family history of chronic obstructive pulmonary disease Malignant neoplasm of prostate Family history of diabetes mellitus in first degree relative Family history of congestive heart failure Diabetes mellitus Hypertension Family history of cardiovascular disease Heart disease Cerebrovascular accident Mother Family history of diabetes mellitus in first degree relative Diabetes mellitus Hypertension Heart disease Social History Social History Social History: Smoking status: Never smoker Second hand tobacco smoke exposure: No Alcohol intake: current Drinks per week: 1 Alcohol use details: Occasionally Substance use: current Substance use type: marijuana Other substance usage details: Occasionally a THC gummie Last use: 06/10/24 Do You Feel Safe in your Home?: Yes Lack of Transportation: No Lack of Food: Never True Current Housing: I Have Housing Concerned About Future Housing: No Difficulty Paying Gas/Electric Bills: No Difficulty Paying for Meds: No Currently Unemployed: No Education: Bachelor's Degree Difficulty w/ Childcare or Family Care: No Living arrangements: with family Occupation/Education: occupation Additional occupation/education comments: teacher Gender identity (if verbalized by the patient): Female Sexual Orientation (if Verbalized by the Patient): Straight or Heterosexual Spiritual care concerns: No Exam Narrative: GENERAL: Tearful affect but not any acute distress, resting comfortably in her stretcher. Morbidly obese HEAD: [Normocephalic, atraumatic.] EYES: [PERRLA and EOMI.] ENT: Nares clear, no rhinorrhea or epistaxis. Mucous membranes moist. NECK: Supple. CHEST: [Clear to auscultation. No respiratory distress.] HEART: [Regular rate and rhythm]. No murmur heard. [Normal peripheral pulses.] ABDOMEN: [Soft, nondistended], [nontender], [No rigidity or guarding] EXTREMITIES: Normal range of motion. [No edema.] SKIN: Warm, dry, no rash. NEURO: [No focal deficits]. Alert and oriented [x3.] PSYCH: [Normal mood and affect.] Course Vital Signs Vital signs: Vital Signs Temperature 37.1 C 06/17/24 16:34 Pulse Rate 88 06/17/24 16:34 Respiratory Rate 16 06/17/24 16:34 Blood Pressure 136/88 06/17/24 16:34 Pulse Oximetry 98 06/17/24 16:34 Temperature 37.8 C H 06/17/24 18:49 Pulse Rate 88 06/17/24 16:34 Respiratory Rate 16 06/17/24 16:34 Blood Pressure 136/88 06/17/24 16:34 Pulse Oximetry 98 06/17/24 16:34 MDM - Fever MDM Narrative Medical decision making narrative: 38-year-old female with urological history including multiple procedures this past week such as lithotripsy, ureteral stent placement, retrograde pyelogram. She was discharged home with Keflex and [place]. Recently seen yesterday for worsening pain or flank with an unremarkable workup. Changed her regimen to include ketorolac and discharged home with Urology follow-up. She noted that she was feverish last night and this morning so she called the urologist office whose board of education secretary informed her that she should proceed to the ER for evaluation. Patient is tearful in her affect but states that her pain is much improved since yesterday. Would not need any additional pain medications at this time in her own words. No new urinary complaints. No shortness of breath, nausea, vomiting, back pain, leg pain or calf cramping. She is afebrile here with normal vital signs, no tachycardia, fever, hypoxia, blood pressure elevations. She is overall in her normal state of health, well-appearing but tearful. Repeat blood work was obtained given that she did have white count yesterday and repeat CT scan was obtained to rule out any kind of intra-abdominal infection or complication of her recent ureteral stent placement or lithotripsy. New urinalysis obtained. She is currently on Keflex. Prior urine cultures reviewed and unremarkable. Chest x-ray ordered see if there is any post procedural pneumonia or atelectasis that could cause her fever. Workup shows no leukocytosis or anemia. Normal platelet count. Downtrending white count from previous visits this week. Electrolytes within normal limits, normal renal function, normal hepatic function, normal glucose. Urinalysis shows potential signs of infection. She is already on Keflex but we will broaden this to Bactrim to cover for other Gram-negative bacteria as well while cultures are pending. Chest x-ray shows no focal infiltrate or effusion. CT scan shows nonobstructing kidney stone, stent in good position without ureteral calculi. Patient was re-evaluated and her pain is still under control, given her reassuring workup here, no signs of focal infection I believe she can be safely discharged home with broad antibiotic coverage. Patient was comfortable with this as well as the family member at bedside. They have a close outpatient Urology follow-up appointment. There were given a dose of Bactrim here and sent home at this time. Medical Records Attestation: I reviewed the patient's medical records. Lab Data Attestation: I reviewed the patient's lab results. 06/17/24 17:56 06/17/24 17:56 Labs: Lab Results 06/17/24 06/17/24 Range/Units 17:56 18:08 WBC 9.6 (4.5-10.0) K/mm3 RBC 4.67 (4.2-5.4) M/mm3 Hgb 14.2 (12.0-15.0) g/dL Hct 42.8 (37.0-47.0) % MCV 91.6 (80-100) fl MCH 30.4 (26-34) pg MCHC 33.2 (32-36) g/dl RDW 13.6 (11.5-14.5) % Plt Count 253 (150-375) k/mm3 MPV 9.9 (7.4-10.4) fl Immature Gran % (Auto) 0.3 (0-0.5) % Neut % (Auto) 75.5 H (45.5-73.1) % Lymph % (Auto) 16.0 L (18.3-44.2) % Pender % (Auto) 5.3 (2.6-8.5) % Eos % (Auto) 2.3 (0-4.4) % Baso % (Auto) 0.6 (0.2-1.2) % Lymph # (Auto) 1.53 (0.9-3.2) K/mm3 Pender # (Auto) 0.5 (0.1-0.6) K/mm3 Eos # (Auto) 0.2 (0-0.3) K/mm3 Baso # (Auto) 0.1 (0.0-0.1) K/mm3 Abs Immat Gran (auto) 0.03 (0.00-0.031) K/mm3 Absolute Neuts (auto) 7.2 H (1.3-6.7) K/mm3 Absolute Nucleated RBC 0.000 (0.0-0.012) K/mm3 Nucleated RBC % 0.0 (0.0-0.2) % Sodium 136 L (137-145) mmol/L Potassium 4.3 (3.4-5.0) mmol/L Chloride 100 (98-107) mmol/L Carbon Dioxide 29 (22-30) mmol/L Anion Gap 7 (4-12) mmol/L BUN 15 (7-17) mg/dL Creatinine 0.78 (0.7-1.0) mg/dL Estim Creat Clear Calc Not Reportable Estimated GFR > 60 (59 - ) Glucose 94 (65-110) mg/dL Calcium 8.9 (8.4-10.2) mg/dL Total Bilirubin 0.6 (0.2-1.3) mg/dL AST 26 (14-36) U/L ALT 47 H (6-35) U/L Alkaline Phosphatase 66 (38-126) U/L Total Protein 7.0 (6.3-8.2) g/dL Albumin 4.2 (3.5-5.1) g/dL Lipase 64 (23-300) U/L Urine Color Yellow (Yellow) Urine Appearance Cloudy H (Clear) Urine pH 7.5 (5.0-9.0) Ur Specific [place] 1.009 (1.001-1.035) Urine Protein 1+ H (Negative) mg/dL Urine Glucose (UA) Negative (Negative) mg/dL Urine Ketones Negative (Negative) mg/dL Ur Blood (Man) 3+ H (Negative) Urine Nitrate Negative (Negative) Urine Bilirubin Negative (Negative) Urine Urobilinogen 1.0 (<2.0) mg/dL Leukocyte Esterase Rfl 3+ H (Negative) CARILE/UL Urine RBC >100 H (0-2) /hpf Urine WBC 21-50 H (0-3) /hpf Ur Squamous Epith Cells None seen (Few) /hpf Urine Bacteria None seen /hpf Urine Casts 3-5 POC Urine HCG, Qual Negative (Negative) Imaging Data Attestation: I personally reviewed and interpreted this imaging study as follows: My impression: Impressions Chest X-Ray 06/17/24 17:55 IMPRESSION: No focal infiltrate or effusion. Abdomen/Pelvis CT 06/17/24 18:02 IMPRESSION: Interval enlargement of a nonobstructing stone within the lower pole of the right kidney, an interval change from 06/11/2024, as detailed above. Double-J stent in good position without ureteral calculi. Discharge Plan Discharge Clinical Impression: Renal colic on right side, Fever, History of ureter stent Patient Disposition: Home, Self-Care Condition: Stable Instructions: Antibiotic Form Additional Instructions: Your CT scan shows no obstruction, no signs of active infection, your urine appears the same as it was yesterday. Your laboratory studies do not show any leukocytosis or white count elevation. We will change her antibiotics to start Bactrim instead of Keflex. Start taking this tonight. Take the Toradol as needed for pain and fevers any could also take 1000 mg of Tylenol every 8 hours as well. Follow-up with the urologist. Return with any new or worsening concerns. Patient Language: Fijian Prescriptions: New sulfamethoxazole-trimethoprim [Bactrim DS] 800-160 mg tablet 1 tablet PO Q12H Qty: 14 0RF No Action hydrocodone-acetaminophen 5-325 mg tablet 1 - 2 tablet PO Q6H PRN (Reason: pain) Qty: 20 0RF cephalexin 500 mg capsule 500 mg PO Q8H Qty: 9 0RF ketorolac 10 mg tablet 10 mg PO Q6H PRN (Reason: pain) Qty: 20 0RF Rx Instructions: maximum total duration of 5 days from all oral, intranasal, or parenteral formulations tamsulosin 0.4 mg Capsule 0.4 mg PO QAM Qty: 30 0RF hydrocodone-acetaminophen 5-325 mg Tablet 1 tablet PO Q6H PRN (Reason: Pain Rated 4-6) Qty: 20 0RF escitalopram oxalate 10 mg tablet See Rx Instructions .ROUTE .COMPLEX Qty: 90 3RF Dose Instruction: TAKE 1 TABLET DAILY Rx Instructions: TAKE 1 TABLET DAILY Follow-up/Referrals: Vinay Trevizo MD [Primary Care Provider] -
--- OUTSIDE RECORDS SUMMARY | 2024-06-17 17:52 | XMS_ITS | Continuity of Care Document ---
Author Organization [facility] Address [address] [place] [address] Phone Care Team Providers Care Print Shop Helper Name Role Phone Unavailable Unavailable Unavailable Advance Directives Directive Yes / No Effective Date File Name No Information Encounters Encounter Description Practice Location Reason(s) For Visit Diagnoses Date Provider Providers Copied on Encounter [facility], [address] [facility] [facility], [place], [place], [id number], [place] tel:[phone] [facility] OUTPATIENT No Information No Information Referring Provider: DAMEON Weeks, [facility], [address]. tel:[phone] Family History Family Member Type Diagnosis Age [...]
--- OUTSIDE RECORDS SUMMARY | 2024-06-17 17:52 | XMS_ITS | Clinical Summary ---
Author Organization [facility] Address [address] [place] [address] Care Team Providers Care Label Designer Name Role Phone Unavailable Primary Care Provider Unavailabl e Source Comments [facility],non-owned Affiliates and Associated Physician Practices is amultiple site organization consisting of ambulatory clinics and hospital sitesin [place], [place], [place] and [place]. This disclosure is being madepursuant to the Care Everywhere program and may not contain all information available regarding this patient. Last updated 17.[facility] Allergies No known active allergies Medications * [...]
--- OUTSIDE RECORDS SUMMARY | 2024-06-17 17:52 | XMS_ITS | Clinical Summary ---
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 Gender Identity Not on file Sexual Orientation Not on file Plan of Treatment Health Maintenance Due Date Last Done Comments Cervical Cancer Screening Pa p Smear (Age 30 to 64) Every 3 Years 1984 Annual Physical 09/08/1987 PHQ-2 (Physician [place]hi) 1996 Hepatitis C 2002 DTaP, Tdap and Td Vaccines ( 1 - Tdap) 09/08/2003 Hepatitis B Vaccines (1 of 3 - 19+ 3-dose series) 09/08/2003 Cervical Cancer Screening Pa p with HPV Testing (Age 30 to 64) Every 5 Years 2014 Cervical Cancer Screening with HPV 2014 COVID-19 Vaccine (2023-2 5 season) 2023 Influenza Adult (#1) 2023 PHQ-2 (Physician [place]hi) 03/22/2024 HPV Vaccines Aged Out No longer [...] patient's age to complete this topic Insurance [facility] Care Teams Electrician Locomotive Relationship Specialty Start Date End Date Vito Ashton [place] [address] [address] PCP - General PHYSICIAN RADIOLOGY PRACTITIONER ASSISTANT 03/03/23
--- OUTSIDE RECORDS SUMMARY | 2024-06-17 17:52 | XMS_ITS | Clinical Summary ---
Author Organization [facility] Address [address] [place] [address] Phone Care Team Providers Care Spanish Translator Name Role Phone Booker Pinto, Non-Integrated Physician [...] age to complete this topic Care Teams Spanish Translator Relationship Specialty Start Date End Date Booker Pinto, Non-Integrated PhysicianMD [address] [place] [address] PCP - General Internal Medicine 05/15/14
[2024-06-17 18:03] LABS: Basophils Absolute Auto 0.1 K/mm3 (0.0-0.1); Basophils Percent Auto 0.6 % (0.2-1.2); Eosinophils Absolute Auto 0.2 K/mm3 (0-0.3); Eosinophils Percent Auto 2.3 % (0-4.4); Hematocrit 42.8 % (37.0-47.0); Hemoglobin 14.2 g/dL (12.0-15.0); Immature Granulocyte Absolute 0.03 K/mm3 (0.00-0.031); Immature Granulocyte Percent A 0.3 % (0-0.5); Lymphocytes Absolute Auto 1.53 K/mm3 (0.9-3.2); Mean Corpuscular HGB Conc 33.2 g/dl (32-36); Mean Corpuscular Hemoglobin 30.4 pg (26-34); Mean Corpuscular Volume 91.6 fl (80-100); Mean Platelet Volume 9.9 fl (7.4-10.4); Monocytes Absolute Auto 0.5 K/mm3 (0.1-0.6); Monocytes Percent Auto 5.3 % (2.6-8.5); Neutrophils Absolute Auto 7.2 K/mm3 (1.3-6.7); Neutrophils Percent Auto 75.5 % (45.5-73.1); Platelet Count Result 253 k/mm3 (150-375); Red Blood Count 4.67 M/mm3 (4.2-5.4); Red Cell Distribution Width 13.6 % (11.5-14.5); White Blood Count 9.6 K/mm3 (4.5-10.0)
[2024-06-17 18:09] LABS: Add Urine Microscopic? YES; Appearance Urine Cloudy (Clear); Bacteria Urine None Seen /hpf; Bilirubin Urine Negative (Negative); Blood Urine 3+ (Negative); Color Urine Yellow (Yellow); Glucose Urine UA Negative (Negative); Ketones Urine Negative (Negative); Leukocyte Esterase Ur 3+ LEU/UL (Negative); Nitrate Urine Negative (Negative); Protein Urine 1+ mg/dL (Negative); RBC Urine >100 /hpf (0-2); Specific Grav Ur 1.009 (1.001-1.035); Squamous Epithelial Cell Urine None Seen /hpf (Few); WBC Urine 21-50 /hpf (0-3); pH Urine 7.5 (5.0-9.0)
[2024-06-17 18:10] LABS: BEDSIDEPREGUCG Negative (Negative)
[2024-06-17 18:17] LABS: Alanine Aminotransferase 47 U/L (6-35); Albumin Level 4.2 g/dL (3.5-5.1); Alkaline Phosphatase 66 U/L (38-126); Anion Gap 7 mmol/L (4-12); Aspartate Amino Transferase 26 U/L (14-36); Bilirubin,Total 0.6 mg/dL (0.2-1.3); Blood Urea Nitrogen 15 mg/dL (7-17); Calcium 8.9 mg/dL (8.4-10.2); Carbon Dioxide 29 mmol/L (22-30); Chloride 100 mmol/L (98-107); Estimated Glomerular Filt Rate > 60; Glucose 94 mg/dL (65-110); Lipase 64 U/L (23-300); Potassium 4.3 mmol/L (3.4-5.0); Sodium 136 mmol/L (137-145)
[2024-06-17 18:49] VITALS: TEMP 37.8
[2024-06-17 19:38] VITALS: BP 143/97; PULSE 85; RESP 18; TEMP 38.2; O2SAT 97
[2024-06-17] MEDS: SULFAMETHOXAZOLE/TRIMETHOPRIM 800/160 MG DS TABLET 1 TAB PO (19:48)
[2024-06-17] MEDS: ACETAMINOPHEN 500 MG TABLET 1000 MG PO (19:49)
== END 2024-06-17 19:52 | disposition home or self-care (01) ==
PROVIDERS: Emergency Provider Student in an Organized Health Care Education/Training Program; PCP Family Medicine
DX: N20.0 Calculus of kidney (principal); R50.9 Fever, unspecified; Z96.0 Presence of urogenital implants; E78.5 Hyperlipidemia, unspecified; Z87.442 Personal history of urinary calculi; Z90.79 Acquired absence of other genital organ(s)
CPT/HCPCS: 36415; 71045; 74176; 80053; 81001; 81025; 83690; 85025; 87086; 99284; A9270

== ENCOUNTER 2025-03-07 14:52 | Outpatient (CLI) | payer BC, SELFPAY ==
--- NOTE | ~2025-03-07 | XR_ITS ---
EXAM/PROCEDURE: XR abdomen/kub 1V HISTORY: Kidney Stones COMPARISON: June 11, 2024 TECHNIQUE: KUB FINDINGS: No large radiopaque kidney stones are seen. Exam somewhat limited by KUB technique and overlying stool and bowel gas. The remainder the exam appears stable. IMPRESSION: Kidney stones not readily evident on this KUB exam. Reviewed, dictated and finalized at location A. ITAL CHIEF EXECUTIVE OFFICER
--- OUTSIDE RECORDS SUMMARY | 2025-03-07 17:40 | XMS_ITS | Clinical Summary ---
Author Organization [place] [id number] [facility] Address [address] [place] [address] Care Team Providers Care Vector Control Specialist Name Role Phone Hernán Hernandez MD Primary Care Provider [phone] Allergies No known active allergies Active Problems Problem Noted Date Diagnosed Date Calculus of kidney 05/02/2010 Encounters Date Type Department Care Team Description 01/12/2025 2:58 PM CDT - 01/12/2025 11:59 PM CDT Hospital Encounter [address] [address] Screening mammogram, encounter for Discharge Disposition: Discharge to home or self care from Last 3 Months Social History Tobacco Use Types Packs/Day Years Used Date Smoking Tobacco: Never Assessed Comments No Sex and Gender Information Value Date Recorded Sex Assigned at Not on file Legal Sex Female 12:02 PM PROGRAM DIRECTOR CABLE TELEVISION Gender Identity Not on file Sexual Orientation Not on file Obstetrics History Para Term AB IAB SAB Ectopic Multiple Livin g Live Births 2 1 Date Outcome GA Total Labor Labor/2nd/3rd Weight Sex Type Anes PTL Shantell A1 A5 Name Clin Last Filed Vital Signs Vital Sign Reading Time Taken Comments Blood Pressure 120/81 10/20/2018 9:15 AM CDT Pulse 94 10/20/2018 9:15 AM CDT Temperature 36.7 C (98 F) 10/20/2018 9:15 AM CDT Respiratory Rate - - Oxygen Saturation 97% 10/20/2018 9:15 AM CDT Inhaled Oxygen Concentration - - Weight 143.8 kg (317 lb) 01/12/2025 3:09 PM CDT Height 157.5 cm (5' 2) 01/12/2025 3:09 PM CDT Body Mass Index 57.98 01/12/2025 3:09 PM CDT Plan of Treatment Health Maintenance Due Date Last Done Comments Cervical Cancer Screening 1984 Depression Screening 1984 Hepatitis C Screening 1984 Varicella Vaccines (1 of 2 - 13+ 2-dose series) 1997 Hepatitis B Screening 2002 Regular Well Visit/Exam 18-64 2002 HPV Vaccines (1 - 3-dose SCDM series) 09/08/2011 Covid-19 Vaccine ( - season) 2024 01/10/2021, 05/24/2020, 04/26/2020 Influenza Vaccine (#1) 2024 , 12/14/2020, 12/26/2015, Additional history exists Breast Cancer Screening-Mammogram 01/12/2026 01/12/2025 DTaP/Tdap/Td Vaccine (3 - Td or Tdap) 01/07/2034 01/08/2024, 08/30/2014 Pneumococcal vaccine <65 Aged Out No longer eligible based on patient's age to complete this topic Procedures Procedure Name Priority Date/Time Associated Diagnosis Comments SCREENING MAMMOGRAM BILATERAL W VICENTE Schedule Routine, Read Routine (OP Routine) 01/12/2025 3:25 PM CDT Screening mammogram, encounter for from Last 3 Months Results * Screening Mammogram Bilateral W Vicente (01/12/2025 3:25 PM CDT) Anatomical Region Laterality Modality Breast Bilateral Mammography Impressions 01/16/2025 1:11 PM CDT Bilateral No evidence of malignancy in either breast. OVERALL BI-RADS FINAL ASSESSMENT: 1 - Negative RECOMMENDATION: Recommend bilateral annual screening mammography. Narrative 01/16/2025 1:11 PM CDT EXAMINATION: Screening Mammogram Bilateral W Vicente: 01/12/2025 COMPARISON: Relevant prior studies available at the time of interpretation were reviewed, including the most recent mammogram on: 05/15/2021. TECHNIQUE: Mammography was performed with 2D and 3D digital breast tomosynthesis (DBT) images. CAD was utilized. BREAST PARENCHYMAL COMPOSITION: The breasts are almost entirely fatty. FINDINGS: Bilateral There is no suspicious mass, calcification, or architectural distortion in either breast. us Self Screening Mammogram IMG MAMMO PROCEDURES Fi nal Result from Last 3 Months [place] [place] Care Teams Vector Control Specialist Relationship Specialty Start Date End Date Hernán Hernandez MD PCP - General 10/20/18
--- OUTSIDE RECORDS SUMMARY | 2025-03-07 17:40 | XMS_ITS | Clinical Summary ---
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 Gender Identity Not on file Sexual Orientation Not on file Plan of Treatment Health Maintenance Due Date Last Done Comments Cervical Cancer Screening Pa p Smear (Age 30 to 64) Every 3 Years 1984 Annual Physical 09/08/1987 Hepatitis C 2002 DTaP, Tdap and Td Vaccines ( 1 - Tdap) 09/08/2003 Hepatitis B Vaccines (1 of 3 - 19+ 3-dose series) 09/08/2003 HPV Vaccines (1 - 3-dose SCD M series) 09/08/2011 Cervical Cancer Screening Pa p with HPV Testing (Age 30 to 64) Every 5 Years 2014 Cervical Cancer Screening with HPV 2014 PHQ-2 (Physician [place]) 03/22/2024 Mammogram Screening 2024 COVID-19 Vaccine ( - 2024-2 6 season) 2024 Influenza Adult (#1) 2024 Hepatitis A Vaccines Aged Out No long er eligible based on patient's age to complete this topic Meningococcal B Vaccine Aged Out No l onger eligible based on patient's age to complete this topic Meningococcal Vaccine Aged Out No gurpreet nasra eligible based on patient's age to complete this topic Pneumococcal Vaccine: Pediat rics (0 to 5 Years) and At-Risk Patients (6 to 49 Years) Aged Out No longer eligible b ased on patient's age to complete this topic RSV Immunizations Under 20 Months Aged Out No longer eligible based on patient's age to complete this topic Insurance [facility] Care Teams Hydrogen Power Plant Manager Relationship Specialty Start Date End Date Vito Ashton PA [address] [address] PCP - General PHYSICIAN REGIONAL OWNER OPERATOR TRUCK DRIVER 03/03/23
--- OUTSIDE RECORDS SUMMARY | 2025-03-07 17:40 | XMS_ITS | Clinical Summary ---
Author Organization [facility] Address [address] [place] [address] Phone Care Team Providers Care Inspector Eyeglass Frames Name Role Phone Booker Ip, Non-Integrated Physician Primary Care Provider Social [...] (1 of 3 - 19+ 3-dose series) 08/20 HPV/Cotest (21-29) 2005 CERVICAL CANCER SCREENING 2014 HPV/Cotest (30-65) 2014 PAP SMEAR 2014 BREAST CANCER SCREENING 2024 INFLUENZA VACCINE (#1) 2024 HPV VACCINES (No Doses Required) Completed Care Teams Inspector Eyeglass Frames Relationship Specialty Start Date End Date Booker Ip, Non-Integrated PhysicianMD [address] [place] [address] PCP - General Internal Medicine 05/15/14
--- OUTSIDE RECORDS SUMMARY | 2025-03-07 17:40 | XMS_ITS | Clinical Summary ---
Author Organization [facility] Address [address] [place] [address] Care Team Providers Care Pet Care Associate Name Role Phone Unavailable Primary Care Provider Unavailabl e Source Comments [facility],non-owned Affiliates and Associated Physician Practices is amultiple site organization consisting of ambulatory clinics and hospital sitesin [place], [place], [place] and [place]. This disclosure is being madepursuant to the Care Everywhere program and may not contain all information available regarding this patient. Last updated 17.[facility] [place] Allergies No known active allergies Medications * Be aware that medications may not be up to date on this document. Alwaysverify current medications with the patient. desogestrel-ethi nyl estradiol (AZURETTE) 0.15-0.02/0.01 MG (09/08) tablet Take [...] Packs/Day Years Used Date Smoking Tobacco: Never Comments No Sex and Gender Information Value Date Recorded Sex Assigned at Not on file Legal Sex Female 4:28 PM CDT Gender Identity Not on file [...] 11:52 AM CDT Height 160 cm (5' 3) 08/12/2016 11:52 AM CDT Body Mass Index 44.29 08/12/2016 11:52 AM CDT Plan of Treatment Health Maintenance Due Date Last Done Comments LIPID TESTING 1984 MAMMOGRAM 1984 HIV SCREENING 09/08/1999 HEPATITIS C SCREENING 09/03/2002 DTAP/TDAP/TD VACCINES (1 - Tdap) 09/08/2003 HEPATITIS B VACCINE (1 of 3 - 19+ 3-dose series) 09/08/2003 PAP SMEAR 2005 HPV VACCINE (1 - 3-dose SCDM series) 09/08/2011 DEPRESSION SCREENING 03/22/2024 COVID-19 VACCINE (1 - 2024-2 6 season) 2024 INFLUENZA VACCINE (#1) 2024 ZOSTER VACCINE (1 of 2) 2034 HIB [...] patient's age to complete this topic Insurance [facility] * Guarantor: D[employer] CHINCHILLA Account Type Relation to Patient Date of Phone Billing Address Personal/Family Spouse
== END 2025-03-07 14:53 | disposition home or self-care (01) ==
PROVIDERS: PCP Family Medicine; Visit Provider Urology
DX: N20.0 Calculus of kidney (principal)
CPT/HCPCS: 74018